=== PATIENT | male | born 1945 | race Caucasian/White ===

== ENCOUNTER 2018-01-24 20:13 | Emergency (ER) | payer MEDICARE, BC ==
[2018-01-24] MEDS ORDERED: NS 0.9% 1000 ML* 1,000 ML IV ONE (20:51)
[2018-01-24] MEDS ORDERED: Ibuprofen TAB* 200 MG PO ONE (21:06)
[2018-01-24 21:10] LABS: ABS Basophils 0 10^3/ul (0-0.2); ABS Eosinophils 0 10^3/ul (0-0.6); ABS Lymphocytes 0.3 10^3/ul (1.0-4.8); ABS Monocytes 0.2 10^3/ul (0-0.8); ABS Neutrophils 4.9 10^3/ul (1.5-7.7); ABS Nucleated RBC 0 10^3/ul; Eosinophil % 0.4 %; Hematocrit 43 % (42-52); Hemoglobin 14.8 g/dl (14.0-18.0); Lymphocyte % 4.9 %; Mean Corpuscular HGB Conc 35 g/dl (31-36); Mean Corpuscular Hemoglobin 33 pg (27-31); Mean Corpuscular Volume 97 fL (80-94); Mean Platelet Volume 8.2 fL (7.4-10.4); Nucleated Red Blood Cells % 0; Platelet Count 163 10^3/ul (150-450); Red Blood Count 4.44 10^6/ul (4.00-5.40); Red Cell Distribution Width 14 % (10.5-15); White Blood Count 5.4 10^3/ul (3.5-10.8)
[2018-01-24 21:26] LABS: EGFR Non-African American 71.4 (>60)
[2018-01-24 23:55] LABS: Urine Appearance Cloudy; Urine Blood Negative (Negative); Urine Color Amber; Urine Ketones Negative (Negative); Urine Protein 1+(30 mg/dL) (Negative); Urine Red Blood Cell Trace(0-2/hpf) (Absent); Urine Specific Gravity 1.034 (1.010-1.030); Urine Urobilinogen Negative (Negative); Urine White Blood Cell Trace(0-5/hpf) (Absent)
--- NOTE | 2018-01-25 00:31 | ED ---
HPI Febrile Illness - HPI Summary HPI Summary: Patient complains of fever up to 103.5 today at 7:30 PM, and one episode of diarrhea yesterday and today. Patient denies any other symptoms including cough, sore throat, ear pain, CARTER, neck stiffness, CP, SOB, N/V/D, abdominal pain , change in urine, change in BM. Patient was given 400mg of Advil at 7:30 PM. Medical history CAD, aortic stenosis, HTN, HDL. Former smoker, denies EtOH or recreational drug use. 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 Onset/Duration: Started Hours Ago Timing: Constant Current Severity: None Pain Intensity: 0 Pain Scale Used: 0-10 Numeric Aggravating Factors: Nothing Alleviating Factors: OTC Medicine Associated Signs and Symptoms: Diarrhea - Additional Pertinent History Primary Care Physician: PAULA - Allergy/Home Medications Allergies/Adverse Reactions: Allergies Allergy/AdvReac Type Severity Reaction Status Date / Time No Known Allergies Allergy Verified 01/24/18 20:20 PMH/Surg Hx/FS Hx/Imm Hx Endocrine/Hematology History: Reports: Hx Thyroid Disease - hypothyroidism Cardiovascular History: Reports: Hx Angina, Hx Coronary Artery Disease, Hx Hypercholesterolemia, Hx Hypertension, Hx Valvular Heart Disease - Aortic Stenosis; monitored by Dr. Hua, yearly echocardiogram, Other Cardiovascular Problems/Disorders - severe aortic stenosis Denies: Hx Myocardial Infarction Respiratory History: Denies: Hx Asthma, Hx Chronic Obstructive Pulmonary Disease (COPD) GI History: Reports: Hx Gastroesophageal Reflux Disease Musculoskeletal History: Reports: Other Musculoskeletal History - ankylosing spondilitis Sensory History: Reports: Hx Contacts or Glasses Opthamlomology History: Reports: Hx Contacts or Glasses - Surgical History Surgery Procedure, Year, and Place: CABG, bilat hip Infectious Disease History: No Infectious Disease History: Denies: Hx Clostridium Difficile, Hx Hepatitis, Hx Human Immunodeficiency Virus (HIV), Hx of Known/Suspected MRSA, Hx Shingles, Hx Tuberculosis, Hx Known/ Suspected VRE, Hx Known/Suspected VRSA, History Other Infectious Disease, Traveled Outside the [place] in Last 30 Days - Social History Alcohol Use: None Substance Use Type: Reports: None Smoking Status (MU): Former Smoker Review of Systems Positive: Fever Eyes: Negative ENT: Negative Cardiovascular: Negative Respiratory: Negative Positive: Diarrhea Genitourinary: Negative Musculoskeletal: Negative Skin: Negative Neurological: Negative Psychological: Normal All Other Systems Reviewed And Are Negative: Yes Physical Exam - Summary Physical Exam Summary: Physical exam unremarkable. Triage Information Reviewed: Yes Vital Signs On Initial Exam: Initial Vitals Temp Pulse Resp BP Pulse Ox 100.2 F 105 16 129/66 94 01/24/18 20:19 01/24/18 20:19 01/24/18 20:19 01/24/18 20:19 01/24/18 20:19 Vital Signs Reviewed: Yes Appearance: Positive: Well-Appearing Skin: Positive: Warm Head/Face: Positive: Normal Head/Face Inspection Eyes: Positive: Normal ENT: Positive: Normal ENT inspection Neck: Positive: Supple Respiratory/Lung Sounds: Positive: Clear to Auscultation Cardiovascular: Positive: Normal Abdomen Description: Positive: Nontender Musculoskeletal: Positive: Normal Neurological: Positive: Normal Psychiatric: Positive: Normal AVPU Assessment: Alert - [place] Coma Scale Best Eye Response: 4 - Spontaneous Best Motor Response: 6 - Obeys Commands Best Verbal Response: 5 - Oriented Coma Scale Total: 15 Diagnostics - Vital Signs Vital Signs Temp Pulse Resp BP Pulse Ox 01/25/18 00:25 87 18 93/57 94 01/25/18 00:24 84 17 74/44 95 01/25/18 00:00 86 15 95 01/24/18 23:52 87 16 96 01/24/18 23:45 98.6 F 01/24/18 23:00 81 14 95 01/24/18 22:00 78 20 95 01/24/18 21:00 93 28 96 01/24/18 20:41 95 21 110/68 95 01/24/18 20:38 93 25 95 01/24/18 20:19 100.2 F 105 16 129/66 94 - Laboratory Lab Results: Lab Results 01/24/18 01/24/18 01/24/18 Range/Units 21:03 21:03 21:03 WBC 5.4 (3.5-10.8) 10^3/ul RBC 4.44 (4.00-5.40) 10^6/ul Hgb 14.8 (14.0-18.0) g/dl Hct 43 (42-52) % MCV 97 H (80-94) fL MCH 33 H (27-31) pg MCHC 35 (31-36) g/dl RDW 14 (10.5-15) % Plt Count 163 (150-450) 10^3/ul MPV 8.2 (7.4-10.4) fL Neut % (Auto) 90.9 % Lymph % (Auto) 4.9 % [place] % (Auto) 3.5 % Eos % (Auto) 0.4 % Baso % (Auto) 0.3 % Absolute Neuts (auto) 4.9 (1.5-7.7) 10^3/ul Absolute Lymphs (auto) 0.3 L (1.0-4.8) 10^3/ul Absolute Monos (auto) 0.2 (0-0.8) 10^3/ul Absolute Eos (auto) 0 (0-0.6) 10^3/ul Absolute Basos (auto) 0 (0-0.2) 10^3/ul Absolute Nucleated RBC 0 10^3/ul Nucleated RBC % 0 Sodium 136 (135-145) mmol/L Potassium 4.0 (3.5-5.0) mmol/L Chloride 104 (101-111) mmol/L Carbon Dioxide 24 (22-32) mmol/L Anion Gap 8 (2-11) mmol/L BUN 20 (6-24) mg/dL Creatinine 1.02 (0.67-1.17) mg/dL Est GFR ( Amer) 86.4 (>60) Est GFR (Non-Af Amer) 71.4 (>60) BUN/Creatinine Ratio 19.6 (8-20) Glucose 143 H (70-100) mg/dL Lactic Acid 1.8 (0.5-2.0) mmol/L Calcium 8.6 (8.6-10.3) mg/dL Total Bilirubin 1.10 H (0.2-1.0) mg/dL AST 26 (13-39) U/L ALT 30 (7-52) U/L Alkaline Phosphatase 100 (34-104) U/L C-Reactive Protein 8.52 H (<8.01) mg/L Total Protein 6.5 (6.4-8.9) g/dL Albumin 3.9 (3.2-5.2) g/dL Globulin 2.6 (2-4) g/dL Albumin/Globulin Ratio 1.5 (1-3) Urine Color Urine Appearance Urine pH (5-9) Ur Specific [place] (1.010-1.030) Urine Protein (Negative) Urine Ketones (Negative) Urine Blood (Negative) Urine Nitrate (Negative) Urine Bilirubin (Negative) Urine Urobilinogen (Negative) Ur Leukocyte Esterase (Negative) Urine WBC (Auto) (Absent) Urine RBC (Auto) (Absent) Urine Bacteria (Absent) Urine Glucose (Negative) Urine Ascorbic Acid (Negative) 01/24/18 Range/Units 23:45 WBC (3.5-10.8) 10^3/ul RBC (4.00-5.40) 10^6/ul Hgb (14.0-18.0) g/dl Hct (42-52) % MCV (80-94) fL MCH (27-31) pg MCHC (31-36) g/dl RDW (10.5-15) % Plt Count (150-450) 10^3/ul MPV (7.4-10.4) fL Neut % (Auto) % Lymph % (Auto) % [place] % (Auto) % Eos % (Auto) % Baso % (Auto) % Absolute Neuts (auto) (1.5-7.7) 10^3/ul Absolute Lymphs (auto) (1.0-4.8) 10^3/ul Absolute Monos (auto) (0-0.8) 10^3/ul Absolute Eos (auto) (0-0.6) 10^3/ul Absolute Basos (auto) (0-0.2) 10^3/ul Absolute Nucleated RBC 10^3/ul Nucleated RBC % Sodium (135-145) mmol/L Potassium (3.5-5.0) mmol/L Chloride (101-111) mmol/L Carbon Dioxide (22-32) mmol/L Anion Gap (2-11) mmol/L BUN (6-24) mg/dL Creatinine (0.67-1.17) mg/dL Est GFR ( Amer) (>60) Est GFR (Non-Af Amer) (>60) BUN/Creatinine Ratio (8-20) Glucose (70-100) mg/dL Lactic Acid (0.5-2.0) mmol/L Calcium (8.6-10.3) mg/dL Total Bilirubin (0.2-1.0) mg/dL AST (13-39) U/L ALT (7-52) U/L Alkaline Phosphatase (34-104) U/L C-Reactive Protein (<8.01) mg/L Total Protein (6.4-8.9) g/dL Albumin (3.2-5.2) g/dL Globulin (2-4) g/dL Albumin/Globulin Ratio (1-3) Urine Color Rita Urine Appearance Cloudy Urine pH 5.0 (5-9) Ur Specific E[place] 1.034 H (1.010-1.030) Urine Protein 1+(30 mg/dl) A (Negative) Urine Ketones Negative (Negative) Urine Blood Negative (Negative) Urine Nitrate Negative (Negative) Urine Bilirubin Negative (Negative) Urine Urobilinogen Negative (Negative) Ur Leukocyte Esterase Negative (Negative) Urine WBC (Auto) Trace(0-5/hpf) (Absent) Urine RBC (Auto) Trace(0-2/hpf) (Absent) Urine Bacteria Absent (Absent) Urine Glucose Negative (Negative) Urine Ascorbic Acid * A (Negative) Result Diagrams: 01/24/18 21:03 01/24/18 21:03 Lab Statement: Any lab studies that have been ordered have been reviewed, and results considered in the medical decision making process. Course/Dx - Course Course Of Treatment: Patient complains of fever up to 103.5 today at 7:30 PM, and one episode of diarrhea yesterday and today. Patient denies any other symptoms including cough, sore throat, ear pain, CARTER, neck stiffness, CP, SOB, N/ V/D, abdominal pain, change in urine, change in BM. Patient was given 400mg of Advil at 7:30 PM. Medical history CAD, aortic stenosis, HTN, HDL. Former smoker , denies EtOH or recreational drug use. Physical exam unremarkable. Fever controlled here in the ED. Vital signs stable and within normal limits. Labs unremarkable. Chest x-ray negative. Urine negative. 1 L normal saline. Patient advised to continue fever control by alternating Tylenol and ibuprofen every 3 hours. And to return to the ED for any new or worsening symptoms. Patient and understand and agree with plan. - Diagnoses Provider Diagnoses: Febrile illness, acute Discharge - Sign-Out/Discharge Documenting (check all that apply): Patient Departure - Discharge Plan Condition: Stable Disposition: HOME Patient Education Materials: Fever in Adults (ED) Referrals: No Primary Care Phys,NOPCP [Primary Care Provider] - [facility] [Outside] Additional Instructions: Alternate 650 mg of Tylenol with 600 mg of ibuprofen every 3 hours for fever control. Drink plenty of fluids. Follow-up with primary care. Return to the ED for any new or worsening symptoms. - Billing Disposition and Condition Condition: STABLE Disposition: Home
[2018-01-25 00:46] VITALS: BP 114/58
== END 2018-01-25 00:45 | disposition home or self-care (01) ==
LOC: ED 20:13
DX: R50.9 Fever, unspecified (principal); R19.7 Diarrhea, unspecified; I25.10 Atherosclerotic heart disease of native coronary artery without angina pectoris; I10 Essential (primary) hypertension; Z87.891 Personal history of nicotine dependence
CPT/HCPCS: 36415; 71046; 80053; 81003; 81015; 83605; 85025; 86140; 87040; 87086; 96360; 96361; 99284

== ENCOUNTER 2019-04-17 21:35 | Inpatient (IN) | payer MEDICARE, BC ==
[2019-04-17] MEDS ORDERED: NS 0.9% 1000 ML** 1,000 ML IV.FLUID IV ONE (21:59)
[2019-04-17 22:00] LABS: ABS Lymphocytes 0.5 10^3/ul (1.0-4.8); ABS Monocytes 0.5 10^3/ul (0-0.8); ABS Neutrophils 7.5 10^3/ul (1.5-7.7); Eosinophil % 0.2 %; Hematocrit 40 % (42-52); Hemoglobin 13.8 g/dL (14.0-18.0); Lymphocyte % 6.2 %; Mean Corpuscular HGB Conc 34 g/dL (31-36); Mean Corpuscular Hemoglobin 33 pg (27-31); Mean Corpuscular Volume 97 fL (80-94); Mean Platelet Volume 8.7 fL (7.4-10.4); Nucleated Red Blood Cells % 0.1; Platelet Count 168 10^3/uL (150-450); Red Blood Count 4.13 10^6 /uL (4.18-5.48); Red Cell Distribution Width 14 % (10-15); White Blood Count 8.6 10^3/uL (3.5-10.8)
[2019-04-17 22:06] LABS: INR 1.38 (0.82-1.09)
[2019-04-17] MEDS ORDERED: Acetaminophen TAB* 325 MG PO ONE (22:10)
[2019-04-17 22:16] LABS: ALT 19 U/L (7-52); AST 18 U/L (13-39); Albumin 3.8 g/dL (3.2-5.2); Albumin/Globulin Ratio 1.4 (1-3); Alkaline Phosphatase 97 U/L (34-104); Anion Gap 6 mmol/L (2-11); BUN/Creatinine Ratio 16.7 (8-20); Blood Urea Nitrogen 15 mg/dL (6-24); CO2 Carbon Dioxide 24 mmol/L (22-32); Chloride 105 mmol/L (101-111); EGFR African American 99.3 (>60); Globulin 2.7 g/dL (2-4); Glucose 139 mg/dL (70-100); Sodium 135 mmol/L (135-145); Total Protein 6.5 g/dL (6.4-8.9)
[2019-04-17 22:24] LABS: Troponin I 0.06 ng/mL (<0.03)
[2019-04-17 22:25] LABS: Activated Partial Thrombo Time 36.3 seconds (26.0-38.0)
[2019-04-17] MEDS ORDERED: Azithromycin 500 mg/250 ml NS 500 MG/250 ML BAG IVPB ONE (22:26)
[2019-04-17] MEDS ORDERED: cefTRIAXone(*) 1 GM in NS 0.9% 50 ML* 50 ML IVPB ONE (22:26)
--- NOTE | 2019-04-17 22:26 | ED ---
Complex/Multi-Sys Presentation - HPI Summary HPI Summary: Patient is a 74 y/o M presenting to [facility] with complaints of SOB, non- productive cough, wheezing, fever, and chest tightness. Sx onset yesterday, . Patient states that he had ambulated upstairs to the bathroom yesterday and became SOB, which he characterizes as abnormal. Temperature of 102 F measured at home earlier today is reported. Patient was 92% o2 saturation on RA upon arrival to ED, patient was placed on NC with improvement. He denies abdominal pain, N/V/D, sore throat, and rhinorrhea. Hx of aortic stenosis is reported. Asthma and COPD are denied. He is a non-smoker. Home medications and allergies are reviewed. Home Medications Medication Instructions Recorded Confirmed Type Aspirin 81 mg PO DAILY 04/17/19 04/17/19 History Atorvastatin* [Lipitor*] 40 mg PO QPM 04/17/19 04/17/19 History Cholecalciferol (Vitamin D3) 5,000 unit PO DAILY 04/17/19 04/17/19 History [Vitamin D3] Docusate Sodium [Colace] 100 mg PO BID 04/17/19 04/17/19 History Metoprolol Tartrate TAB* 25 mg PO BID 04/17/19 04/17/19 History [Lopressor TAB*] Multivitamin [Multiple Vitamins] 1 tab PO DAILY 04/17/19 04/17/19 History Niacinamide [Niacin] 1,000 mg PO DAILY 04/17/19 04/17/19 History Ramipril 10 mg PO DAILY 04/17/19 04/17/19 History Ubidecarenone [Coq-10 Tr] 100 mg PO DAILY 04/17/19 04/17/19 History Vit A/Vit C/Vit E/Zinc/Copper 1 each PO BID 04/17/19 04/17/19 History [Preservision Areds Softgel] Vitamin B Complex [Super B-50 1 each PO DAILY 04/17/19 04/17/19 History Complex] - History Of Current Complaint Chief Complaint: EDChestPainROMI Time Seen by Provider: 04/17/19 21:58 Hx Obtained From: Patient Onset/Duration: Lasting Days, Still Present Timing: Constant, Days Location: Pain At: - chest Character: Pressure - "tightness" Associated Signs And Symptoms: Positive: SOB, Cough, Wheezing, Chest Pain, Fever , Other - negative - sore throat, rhinorrhea. Negative: Nausea, Vomiting, Diarrhea, Abdominal Pain - Allergies/Home Medications Allergies/Adverse Reactions: Allergies Allergy/AdvReac Type Severity Reaction Status Date / Time No Known Allergies Allergy Verified 01/24/18 20:20 Home Medications: Home Medications Aspirin 81 mg PO DAILY 04/17/19 [History Confirmed 04/17/19] Atorvastatin* [Lipitor*] 40 mg PO QPM 04/17/19 [History Confirmed 04/17/19] Cholecalciferol (Vitamin D3) [Vitamin D3] 5,000 unit PO DAILY 04/17/19 [History Confirmed 04/17/19] Docusate Sodium [Colace] 100 mg PO BID 04/17/19 [History Confirmed 04/17/19] Metoprolol Tartrate TAB* [Lopressor TAB*] 25 mg PO BID 04/17/19 [History Confirmed 04/17/19] Multivitamin [Multiple Vitamins] 1 tab PO DAILY 04/17/19 [History Confirmed 09/28] Niacinamide [Niacin] 1,000 mg PO DAILY 04/17/19 [History Confirmed 04/17/19] Ramipril 10 mg PO DAILY 04/17/19 [History Confirmed 04/17/19] Ubidecarenone [Coq-10 Tr] 100 mg PO DAILY 04/17/19 [History Confirmed 04/17/19] Vit A/Vit C/Vit E/Zinc/Copper [Preservision Areds Softgel] 1 each PO BID [History Confirmed 04/17/19] Vitamin B Complex [Super B-50 Complex] 1 each PO DAILY 04/17/19 [History Confirmed 04/17/19] Levothyroxine TAB* [Synthroid TAB*] 50 mcg PO DAILY 04/18/19 [History Confirmed 04/18/19] Nitroglycerin 0.4 mg SL TID PRN 04/18/19 [History Confirmed 04/18/19] PMH/Surg Hx/FS Hx/Imm Hx Endocrine/Hematology History: Reports: Hx Thyroid Disease - hypothyroidism Cardiovascular History: Reports: Hx Angina, Hx Coronary Artery Disease, Hx Hypercholesterolemia, Hx Hypertension, Hx Valvular Heart Disease - Aortic Stenosis; monitored by Dr. Hua, yearly echocardiogram, Other Cardiovascular Problems/Disorders - severe aortic stenosis Denies: Hx Myocardial Infarction Respiratory History: Denies: Hx Asthma, Hx Chronic Obstructive Pulmonary Disease (COPD) GI History: Reports: Hx Gastroesophageal Reflux Disease Musculoskeletal History: Reports: Other Musculoskeletal History - ankylosing spondilitis Sensory History: Reports: Hx Contacts or Glasses Opthamlomology History: Reports: Hx Contacts or Glasses - Surgical History Surgery Procedure, Year, and Place: CABG, bilat hip Infectious Disease History: No Infectious Disease History: Denies: Hx Clostridium Difficile, Hx Hepatitis, Hx Human Immunodeficiency Virus (HIV), Hx of Known/Suspected MRSA, Hx Shingles, Hx Tuberculosis, Hx Known/ Suspected VRE, Hx Known/Suspected VRSA, History Other Infectious Disease, Traveled Outside the [place] in Last 30 Days - Family History Known Family History: Positive: Cardiac Disease - Social History Alcohol Use: None Substance Use Type: Reports: None Smoking Status (MU): Former Smoker Review of Systems Positive: Fever Negative: Sore Throat, Nasal Discharge Positive: Chest Pain Positive: Shortness Of Breath, Cough, Other - Wheezing Negative: Abdominal Pain, Vomiting, Diarrhea, Nausea All Other Systems Reviewed And Are Negative: Yes Physical Exam - Summary Physical Exam Summary: Appearance: Ill-appearing, Well-nourished, lying in bed comfortably; Vital signs are notable for hypoxemia and fever. Skin: Warm, dry, no obvious rash Eyes: sclera anicteric, no conjunctival pallor HENT: mucous membranes moist, pharynx appears normal Neck: Supple, nontender Respiratory: Mildly tachypneic, no notable respiratory distress, coarse crackles , particularly on the right. Bronchial breath sounds and E to A at right base. Cardiovascular: Normal S1, S2. No murmurs. Normal distal pulses in tibial and radial bilaterally. Abdomen: Soft, nontender, normal active bowel sounds present Musculoskeletal: Trace pitting BLE edema. Strength/ROM Intact Neurological: A&Ox3, awake and alert, mentation is normal, speech is fluent and appropriate Psychiatric: affect is normal, does not appear anxious or depressed Triage Information Reviewed: Yes Vital Signs On Initial Exam: Initial Vitals Temp Pulse Resp BP Pulse Ox 101.2 F 98 28 145/84 92 04/17/19 21:36 04/17/19 21:36 04/17/19 21:36 04/17/19 21:36 04/17/19 21:36 Vital Signs Reviewed: Yes Procedures - Sedation Patient Received Moderate/Deep Sedation with Procedure: No Diagnostics - Vital Signs Vital Signs Temp Pulse Resp BP Pulse Ox 04/17/19 21:42 95 12 145/84 92 04/17/19 21:40 97 89 04/17/19 21:36 101.2 F 98 28 145/84 92 - Laboratory Lab Results: Lab Results 04/17/19 Range/Units 21:47 WBC 8.6 (3.5-10.8) 10^3/uL RBC 4.13 L (4.18-5.48) 10^6 /uL Hgb 13.8 L (14.0-18.0) g/dL Hct 40 L (42-52) % MCV 97 H (80-94) fL MCH 33 H (27-31) pg MCHC 34 (31-36) g/dL RDW 14 (10-15) % Plt Count 168 (150-450) 10^3/uL MPV 8.7 (7.4-10.4) fL Neut % (Auto) 87.7 % Lymph % (Auto) 6.2 % Ness % (Auto) 5.7 % Eos % (Auto) 0.2 % Baso % (Auto) 0.2 % Absolute Neuts (auto) 7.5 (1.5-7.7) 10^3/ul Absolute Lymphs (auto) 0.5 L (1.0-4.8) 10^3/ul Absolute Monos (auto) 0.5 (0-0.8) 10^3/ul Absolute Eos (auto) 0.0 (0-0.6) 10^3/ul Absolute Basos (auto) 0.0 (0-0.2) 10^3/ul Absolute Nucleated RBC 0.0 10^3/ul Nucleated RBC % 0.1 Result Diagrams: 04/17/19 21:47 04/17/19 21:47 Lab Statement: Any lab studies that have been ordered have been reviewed, and results considered in the medical decision making process. - Radiology CXR Radiology Interpretation Completed By: ED Physician Summary of Radiographic Findings: Bilateral airspace disease with air bronchograms consistent with bilateral PNA, pending official report. - EKG 2140 Cardiac Rate: Tachycardia - rate of 116 BPM EKG Rhythm: Sinus Tachycardia Summary of EKG Findings: EKG showed sinus tachycardia with rate of 116 BPM, [facility], no STEMI noted. ED physician has reviewed and interpreted this EKG. Complex Multi-Symp Course/Dx Course Of Treatment: Patient is a 74 y/o M presenting to [facility] with complaints of SOB, non-productive cough, wheezing, fever, and chest tightness. Sx onset yesterday, 04/16/19. Patient states that he had ambulated upstairs to the bathroom yesterday and became SOB, which he characterizes as abnormal. Temperature of 102 F measured at home earlier today is reported. Patient was 92 % o2 saturation on RA upon arrival to ED, patient was placed on NC with improvement. He denies abdominal pain, N/V/D, sore throat, and rhinorrhea. Hx of aortic stenosis is reported. Asthma and COPD are denied. He is a non-smoker. Patient is ill-appearing, vital signs are notable for fever and hypoxemia. He is mildly tachypneic, no notable respiratory distress, coarse crackles, particularly on the right. Bronchial breath sounds and E to A at right base. There is also trace BLE edema. Bloodwork was obtained, abnormal values include RBC 4.13, Hgb 13.8, Hct 40, MCV 97, MCH 33, absolute lymphs 0.5, INR 1.38, glucose 139, total bilirubin 1.90, troponin 0.06. CXR showed bilateral airspace disease with air bronchograms consistent with bilateral PNA. EKG showed sinus tachycardia with rate of 116 BPM, [facility], no STEMI noted. During ED course , patient received fluids, ceftriaxone sodium 1 gm in sodium chloride 50 mls @ 100 mls/hr IVPB ED, Ziithromax 500 mg in 250 mls @ 250 mls/hr IVPB ED, Tylenol 975 mg PO. Patient's case was discussed with Dr. More, Dr. More accepts for admission. - Diagnoses Provider Diagnoses: Bilateral pneumonia - Physician Notifications Discussed Care Of Patient With: Hector More Time Discussed With Above Provider: 22:35 Instructed by Provider To: Other - Patient's case was discussed with Dr. More , Dr. More accepts for admission. Discharge ED - Sign-Out/Discharge Documenting (check all that apply): Patient Departure - admit - Discharge Plan Condition: Fair Disposition: ADMITTED TO [facility] - Billing Disposition and Condition Condition: FAIR Disposition: Admitted to [facility] - Attestation Statements Document Initiated by Riki: Yes Documenting Noemiibe: SELAM PEREZ Provider For Whom Riki is Documenting (Include Credential): INOCENCIA MICHELLE MD Scribamelie Attestation: SELAM Lloyd, scribed for INOCENCIA MICHELLE MD on 04/18/19 at 0353. Scribe Documentation Reviewed: Yes Provider Attestation: The documentation as recorded by the SELAM couch accurately reflects the service I personally performed and the decisions made by me, INOCENCIA MICHELLE MD Status of Scribamelie Document: Viewed
[2019-04-17] MEDS ORDERED: Ondansetron INJ* 2 MG/ML VIAL IV PRN (23:52)
[2019-04-17] MEDS ORDERED: Al Hydrox/Mg Hydrox/Simet LIQ* 30 ML UDC PO PRN (23:52)
[2019-04-18 00:53] LABS: Influenza A Molecular Negative (Negative); Influenza B Molecular Negative (Negative)
[2019-04-18 01:36] LABS: Urine Appearance Clear; Urine Bilirubin Negative (Negative); Urine Blood Negative (Negative); Urine Color Yellow; Urine Glucose Negative (Negative); Urine Ketones Negative (Negative); Urine Nitrite Negative (Negative); Urine Protein Negative (Negative); Urine Specific Gravity 1.008 (1.010-1.030); Urine Urobilinogen Negative (Negative)
[2019-04-18 02:03] LABS: Troponin I 0.06 ng/mL (<0.03)
[2019-04-18] MEDS: Enoxaparin(*) 40 MG/0.4 ML SYR SUBCUT SCH ×2 (02:05→21:29)
[2019-04-18 04:01] LABS: Troponin I 0.06 ng/mL (<0.03)
[2019-04-18 07:15] LABS: ABS Lymphocytes 0.6 10^3/ul (1.0-4.8); ABS Monocytes 0.4 10^3/ul (0-0.8); ABS Neutrophils 5.6 10^3/ul (1.5-7.7); Eosinophil % 0.6 %; Hematocrit 40 % (42-52); Hemoglobin 14.1 g/dL (14.0-18.0); Lymphocyte % 9.7 %; Mean Corpuscular HGB Conc 35 g/dL (31-36); Mean Corpuscular Hemoglobin 34 pg (27-31); Mean Corpuscular Volume 97 fL (80-94); Platelet Count 154 10^3/uL (150-450); Red Blood Count 4.13 10^6 /uL (4.18-5.48); Red Cell Distribution Width 14 % (10-15); White Blood Count 6.7 10^3/uL (3.5-10.8)
[2019-04-18 07:32] LABS: BUN/Creatinine Ratio 13.8 (8-20); Calcium 8.5 mg/dL (8.6-10.3); EGFR African American 113.7 (>60); Magnesium 1.8 mg/dL (1.9-2.7)
[2019-04-18 07:38] LABS: Troponin I 0.06 ng/mL (<0.03)
[2019-04-18] MEDS: Docusate CAP* 100 MG PO SCH ×2 (08:18→21:29)
[2019-04-18] MEDS: Vitamin B Complex TAB PO SCH (08:18)
[2019-04-18] MEDS: Cholecalciferol TAB* 1000 UNITS PO SCH (08:19)
[2019-04-18] MEDS: Aspirin 81 mg CHEW TAB* 81 MG TAB.CHEW PO SCH (08:19)
[2019-04-18] MEDS: Metoprolol Tartrate TAB* 25 MG PO SCH ×2 (08:20→21:30)
[2019-04-18] MEDS: Vitamin THERAPEUTIC TAB PO SCH (08:20)
[2019-04-18] MEDS: Coenzyme Q10 (NF) ** ENTER STREGNTH IN LABEL DIRECTIONS PO SCH (08:21)
[2019-04-18] MEDS: Multivitamins/Minera Areds(NF) 1 CAP CAP PO SCH ×2 (08:21→21:36)
[2019-04-18] MEDS: Niacin ER CAP* 500 MG CAP.ER PO SCH (08:21)
[2019-04-18] MEDS ORDERED: Magnesium Sulfate 2 GM IV* 2 GM/50 ML BAG IVPB ONE (08:47)
[2019-04-18] MEDS ORDERED: Ramipril CAP* 10 MG PO SCH (09:00)
[2019-04-18] MEDS ORDERED: Perflutren Lipid Microsphere* 3 ML VIAL ONE (09:16)
[2019-04-18] MEDS ORDERED: NS 0.9% 1000 ML** 1,000 ML IV SCH ×2 (11:30→23:55)
[2019-04-18] MEDS: Albuterol/Ipratropium NEB.SOL* Albuterol 2.5 MG/Ipratropium 0.5 MG 3 ML INH SCH ×2 (12:01→15:29)
--- NOTE | 2019-04-18 12:12 | CONS ---
CONSULTATION REPORT: DATE OF CONSULT: 04/18/19 ATTENDING PHYSICIAN: Dr. Jerome Solis, Cardiology.* (DICTATED BY ALCIRA GAVIN NP) PRIMARY ONCOLOGIST: Dr. Darrin Hua. PRIMARY PHYSICIAN: Dr. Taj Bernabe. CHIEF COMPLAINT: 1. Fever. 2. Nonproductive cough. 3. Shortness of breath. 4. Chest tightness. HISTORY OF PRESENT ILLNESS: This is a pleasant 74-year-old male patient who follows with Dr. Darrin Hua of our practice due to a notable history of coronary artery disease with bypass x4 in 2003 that resulted in left internal thoracic artery to LAD, saphenous vein graft to PDA, saphenous vein graft to obtuse marginal, saphenous vein graft to ramus, extensive endarterectomy to LAD. The patient also has been followed for severe to borderline critical aortic stenosis. Last echocardiogram was in May 2018 per report, peak gradient was 74, mean gradient 46 with a known 4 cm proximal ascending aortic aneurysm. He follows with primary care provider for a history of hypertension, hyperlipidemia, and GERD. The patient states he has been in his usual state of health since his last visit in May 2018. He denies any recent illness, infection, or hospitalization. He states that after ambulating up a flight of stairs at a quicker pace than usual Thursday evening, he developed sudden onset of shortness of breath with associated nonproductive cough and associated chest tightness. The patient states after resting, within 2 to 3 minutes, chest tightness resolved and breathing effort improved. On Thursday, he had a documented fever of 102.5 degrees. The patient states that his 's friend who is a registered nurse was at his house, took his blood pressure, gave him Tylenol and repeated his temperature which continued to persistently be elevated. He states that he asked his to call 911. En route to [facility], the patient reports oxygen level with EMS was 88% on room air. Thus, they gave him supplemental oxygen. Oxygen level in the emergency department was 92%. According to the emergency room provider's documentation, the patient was tachypneic and tachycardic. The patient presented with frequent ventricular ectopy and a bigeminal pattern. Based on his presenting ECG, 04/17/19 at 2138, heart rate was 116. The patient had basic blood work obtained. Influenza A and B were negative. He had persistent troponinemia at 0.06, although in the past it appears that his troponin was elevated in 2015 as well. INR 1.38. Not on any anticoagulants at home. His white blood cell count was not elevated. He was admitted to [address] [place] [address] for possible upper respiratory tract infection and troponin elevation, and we were asked to see the patient in consultation. The patient denies diarrhea. States that he did not manifest fevers, chills, or rigors. He adds that his had been sick with a nonproductive cough a week ago and he believes that he contracted upper respiratory tract illness from her. He denies dizziness, lightheadedness, or syncope. Denies edema and states he has actually lost weight since last year. He offers no other complaints. 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 Adds that he also is employed as a wildland fire fighter at [employer] and has not had any exertional symptoms with those duties either. Last echocardiogram, as mentioned before, 05/10/18; per report, LVEF 60% to 65% , mild LVH, ascending proximal aorta 4 cm, severe to borderline critical , peak gradient 74, mean gradient 46. Last ischemic evaluation via Lexiscan nuclear stress test, May 2018; per report, there was a small fixed apical septal defect, small basal lateral resting defect with mild superimposed photopenia, resting EF 50%, stress EF 51% , TID 1.06. PAST MEDICAL HISTORY: 1. Coronary artery disease with prior bypass x4 in 2003 as mentioned above. 2. Hypertension. 3. Hyperlipidemia. 4. Severe to critical aortic stenosis. 5. 4 cm proximal aortic dilatation. 6. Hypothyroidism. 7. GERD. PAST SURGICAL HISTORY: 1. CABG x4 in 2003 as mentioned above. 2. Prior cardiac catheterization. ALLERGIES: No known drug allergies. Denies allergy to shellfish, contrast dye , or aspirin. FAMILY HISTORY: Noncontributory. SOCIAL HISTORY: The patient is a former tobacco user. Drinks alcohol rarely. Denies illegal drug use. 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 He is , lives at home with his . In regards to activity, he lives a fairly active lifestyle given his employment. Prior to this, denies exertional symptoms. He ambulates independently. Denies recent fall or frequent falls. REVIEW OF SYSTEMS: All systems have been reviewed and are otherwise negative except as above mentioned in the HPI. PHYSICAL EXAMINATION: The patient is sitting upright in bed upon entering room , eating breakfast, appears in no apparent distress, is cooperative with the examination, appears well nourished, A and O x3, does not appear overtly frail. HEENT: Head is atraumatic, normocephalic. Oral mucosa is moist. Tongue is midline. Neck: Supple. Trachea midline. Positive left greater than right bruits. Unable to assess JVD. Cardiac: Normal S1, S2. Regular rate and rhythm. Positive 4/6 systolic aortic valve murmur auscultated across the entire pericardium. Lungs: Auscultated posteriorly. Slight inspiratory rales noted throughout. Slight inspiratory wheezes noted in right base, otherwise respirations are nonlabored. No retractions. /GI: Abdomen is soft, nontender, nondistended. Normoactive bowel sounds x4. Nontender to palpation. Extremities: No pedal edema, clubbing, or cyanosis. Peripheral vascular: 2+ brachial and dorsalis pedis pulses palpated bilaterally symmetrically. Skin: Intact. No evidence of jaundice, rash, or ecchymosis appreciated. DIAGNOSTIC STUDIES/LAB DATA: Blood work reviewed, white count 6.7, hemoglobin 14.1, hematocrit 40, platelets 154. INR 1.38. Sodium 139, potassium 4, chloride 107, carbon dioxide 24, BUN 11, creatinine 0.80. Influenza A and B are negative. Sputum culture is pending. Chest x-ray, 04/17/19, per report, patchy bilateral perihilar airspace disease, small left pleural effusion. ECG, 04/17/19; per report, sinus tachycardia with ventricular bigeminy, rate 116 , there appears to be inferior Q waves, no acute ST segment or depression appreciated. Echocardiogram pending. ASSESSMENT AND PLAN: 1. Sudden onset complaints of exertional dyspnea with associated chest tightness and nonproductive cough with subsequent development of fever per the patient. Although he states exposure to his who has recently had similar symptomatology in the past week, his white blood cell count is not elevated. His influenza A and B rapid resting were negative. He is currently being treated for community acquired pneumonia. Of note, he presented with tachycardia, ventricular bigeminy, and troponinemia. We will defer evaluation for possible PE to primary team. Sputum culture is pending at this time. 2. History of severe to critical aortic stenosis; peak gradient 74, mean gradient 46 on May 2018 echocardiogram. His left ventricular ejection fraction at that time was 60% to 65%. Given possible infection, which could lead to volume contraction, we will hold ISSA inhibitor therapy and avoid afterload reduction. His symptom onset was sudden onset and he has had a documented fever at home and had a low-grade fever upon presentation to the emergency room. We will await updated echocardiogram, assessment of aortic valve and make further recommendations afterwards. For now, avoid volume contraction, afterload reduction, and nitrate therapy. 3. Ventricular ectopy; the patient has had ventricular bigeminy, specifically while in the emergency department, magnesium is 1.8. We will replace. Recommend keeping magnesium greater than 2, potassium greater than 4. Continue Lopressor therapy. The patient is asymptomatic. 4. History of coronary artery disease with bypass x4 in 2003. The patient has troponinemia. No ischemic ECG changes. He was tachycardic with ventricular bigeminy while in the emergency department. He had exertional dyspnea with associated chest tightness that improved with rest Thursday evening. This is in the setting of a documented fever and nonproductive cough and severe to critical aortic stenosis. He had an ischemic evaluation last May, which showed a fixed apical septal defect that was small in nature, left ventricular ejection fraction resting was 50%, stress ejection fraction was 51%. Echocardiogram is to be updated to rule out wall motion abnormality. Of note in 2014, he also had troponinemia. We would recommend continuing aspirin, statin , beta-rafa at this time. We will make further recommendations after echo assessment. 5. History of hyperlipidemia. On statin therapy. Goal LDL less than 70. 6. Disposition: Pending course. Case discussed with Dr. Jerome Solis who agrees with the above assessment and plan. We will await echocardiogram and make further recommendations following please: Hold ISSA inhibitor to avoid afterload reduction and given probable underlying infection, please avoid volume contraction due to severe critical aortic stenosis. ALCIRA GAVIN, DIRECTOR CHECK [id number]/[facility] #: [id number] HANY
--- NOTE | 2019-04-18 12:18 | PN ---
Subjective Date of Service: 04/18/19 Interval History: Patient states he was short of breath going up stairs at home. Tells me he did not feel short of breath when walking to the bathroom, but was using continuous oxygen at that time. He denies fever/chills, difficulty breathing at rest, chest pain, abd pain. He wishes to be full code at this time but he and his are going to discuss the MOLST document. Objective Active Medications: Acetaminophen (Tylenol Tab*) 650 mg PO Q6H PRN PRN Reason: PAIN - MILD Al Hydrox/Mg Hydrox/Simethicone (Maalox Plus*) 30 ml PO Q6H PRN PRN Reason: INDIGESTION Albuterol/Ipratropium (Duoneb (Albuterol 2.5 Mg/Ipratropium 0.5 Mg)) 1 neb INH [id number] AWAKE [facility] Last Admin: 04/18/19 12:01 Dose: 1 neb Aspirin (Aspirin 81 Mg Chew Tab*) 81 mg PO DAILY [facility] Last Admin: 04/18/19 08:19 Dose: 81 mg Atorvastatin Calcium (Lipitor*) 40 mg PO BEDTIME [facility] Cholecalciferol (Vitamin D Tab*) 5,000 units PO DAILY [facility] Last Admin: 04/18/19 08:19 Dose: 5,000 units Coenzyme Q10 (Coenzyme Q10 (Nf)) 1 cap PO DAILY [facility] Last Admin: 04/18/19 08:21 Dose: Not Given Docusate Sodium (Colace Cap*) 100 mg PO BID [facility] Last Admin: 04/18/19 08:18 Dose: 100 mg Enoxaparin Sodium (Lovenox(*)) 40 mg SUBCUT BEDTIME [facility] Last Admin: 04/18/19 02:05 Dose: 40 mg Azithromycin (Zithromax 500 Mg/250 Ml) 500 mg in 250 mls @ 250 mls/hr IVPB Q24H [facility] Stop: 04/22/19 21:59 Ceftriaxone Sodium 1 gm/ (Sodium Chloride) 50 mls @ 100 mls/hr IVPB Q24H [facility] Sodium Chloride (Ns 0.9% 1000 Ml) 1,000 mls @ 75 mls/hr IV PER RATE [facility] Metoprolol Tartrate (Lopressor Tab*) 25 mg PO BID [facility] Last Admin: 03/09/20 08:20 Dose: 25 mg Multivitamins (Theragran Tab*) 1 tab PO DAILY [facility] Last Admin: 04/18/19 08:20 Dose: 1 tab Multivitamins/Minerals (Preservision Areds(Multivitamins/Mineral)(Nf)) 1 cap PO BID [facility] Last Admin: 04/18/19 08:21 Dose: Not Given Niacin (Niaspan Er Cap*) 1,000 mg PO DAILY [facility] Last Admin: 04/18/19 08:21 Dose: 1,000 mg Ondansetron HCl (Zofran Inj*) 4 mg IV Q4H PRN PRN Reason: NAUSEA/VOMITING Vitamin B Complex/Vitamin E (B Complex-50*) 1 tab PO DAILY [facility] Last Admin: 04/18/19 08:18 Dose: 1 tab Vital Signs - 8 hr 04/18/19 04/18/19 04/18/19 07:00 08:00 10:40 Temperature 98.5 F Pulse Rate 99 Respiratory 22 20 Rate Blood Pressure 147/73 (mmHg) O2 Sat by Pulse 94 88 Oximetry 04/18/19 04/18/19 11:00 12:07 Temperature 99.1 F Pulse Rate 105 110 Respiratory 22 16 Rate Blood Pressure 148/72 (mmHg) O2 Sat by Pulse 92 87 Oximetry Oxygen Devices in Use Now: Nasal Cannula Appearance: Elderly, obese white male, reclined in chair, appearing comfortable and in NAD Eyes: No Scleral Icterus, - - PERRL Ears/Nose/Mouth/Throat: - - lips appear dry Neck: Trachea Midline Respiratory: Symmetrical Chest Expansion and Respiratory Effort, Clear to Auscultation, - - faint wheezing in bilateral lower whaley and right mid lung field; minimally tachypneic, respiring through mouth Cardiovascular: RRR, - - high pitched holosystolic murmur, grade 4/6, auscultated well at mitral space; Abdominal: - - abd soft/nontender/nondistended Extremities: No Edema, No Clubbing, Cyanosis Skin: No Rash or Ulcers Neurological: Alert and Oriented x 3 Result Diagrams: 04/18/19 07:05 04/18/19 07:05 Additional Lab and Data: Lab Results 04/17/19 Range/Units 21:47 WBC 8.6 (3.5-10.8) 10^3/uL RBC 4.13 L (4.18-5.48) 10^6 /uL Hgb 13.8 L (14.0-18.0) g/dL Hct 40 L (42-52) % MCV 97 H (80-94) fL MCH 33 H (27-31) pg MCHC 34 (31-36) g/dL RDW 14 (10-15) % Plt Count 168 (150-450) 10^3/uL MPV 8.7 (7.4-10.4) fL Neut % (Auto) 87.7 % Lymph % (Auto) 6.2 % [place] % (Auto) 5.7 % Eos % (Auto) 0.2 % Baso % (Auto) 0.2 % Absolute Neuts (auto) 7.5 (1.5-7.7) 10^3/ul Absolute Lymphs (auto) 0.5 L (1.0-4.8) 10^3/ul Absolute Monos (auto) 0.5 (0-0.8) 10^3/ul Absolute Eos (auto) 0.0 (0-0.6) 10^3/ul Absolute Basos (auto) 0.0 (0-0.2) 10^3/ul Absolute Nucleated RBC 0.0 10^3/ul Nucleated RBC % 0.1 Assess/Plan/Problems-Billing Assessment: 74 yo white male with PMHx of severe , hx 4 vessel CABG, HTN, HLD, hypothyroidism, ankylosing spondylitis, and GERD presents with shortness of breath, cough, and chest pain. - Patient Problems (1) Pneumonia Current Visit: Yes Status: Acute Code(s): J18.9 - PNEUMONIA, UNSPECIFIED ORGANISM SNOMED Code(s): 380016446 Comment: -presents with fever, SOB, cough -CXR appears to have right sided consolidation -afebrile since admission -minimally tachycardic today and was running continuous fluids, but now discontinuing as below -continue ceftriaxone and azithromycin (2) Elevated troponin Current Visit: No Status: Acute Code(s): R79.89 - OTHER SPECIFIED ABNORMAL FINDINGS OF BLOOD CHEMISTRY SNOMED Code(s): 392226885 Comment: -presented with inspiratory chest pain -troponin stable at 0.06 -EKG without ischemic changes -has hx of 4 vessel CABG and does have some new demand in setting of pneumonia -considering new critical aortic valve stenosis, Dr. Solis recommends cardiac catheterization -to laboratory development technician tomorrow (3) Critical aortic valve stenosis Current Visit: Yes Status: Acute Code(s): I35.0 - NONRHEUMATIC AORTIC (VALVE ) STENOSIS SNOMED Code(s): 301988526 Comment: -previously known severe aortic stenosis -TTE today demonstrates worsening of , now critical -has had discussions with Dr. Hua outpatient and is interested in valve replacement (4) Acute respiratory failure with hypoxia Current Visit: Yes Status: Acute Code(s): J96.01 - ACUTE RESPIRATORY FAILURE WITH HYPOXIA SNOMED Code(s): 20414726 Comment: -appears multifactorial -patient has pneumonia, though additionall has critical and received large volume fluid, could be related to pulmonary edema -avoiding diuresis at this time due to mild hypotension -will d/c continuous fluids and monitor (5) Hypertension Current Visit: No Status: Acute Code(s): I10 - ESSENTIAL (PRIMARY) HYPERTENSION SNOMED Code(s): 30615477 Comment: -cardiology recommends holding ISSA-I -monitoring -somewhat hypotensive this afternoon (6) CAD (coronary artery disease) Current Visit: No Status: Acute Code(s): I25.10 - ATHSCL HEART DISEASE OF [place] CORONARY ARTERY W/O ANG PCTRS SNOMED Code(s): 16536220 Comment: -continue ASA, statin, metoprolol (7) Hypothyroidism Current Visit: Yes Status: Acute Code(s): E03.9 - HYPOTHYROIDISM, UNSPECIFIED SNOMED Code(s): 53284964 Comment: -continue levothyroxine (8) DVT prophylaxis Current Visit: No Status: Acute Code(s): EAJ5628 - SNOMED Code(s): 761068584 Comment: -lovenox (9) Full code status Current Visit: No Status: Acute Code(s): Z78.9 - OTHER SPECIFIED HEALTH STATUS SNOMED Code(s): 329639266 Status and Disposition: pending further medical improvement, cath tomorrow
--- NOTE | 2019-04-18 12:30 | ECHO ---
*[facility]* [place] [address] Fax #: [phone] Transthoracic Echocardiogram Patient: Davey Thacker : 1945 Study Date: 04/18/2019 Age: 74 Gender: M HR: 108 bpm Height: 67 in /170.2 cm BSA: 2.15 m^2 Weight: 229.5 lb /104.3 kg BMI: 36 kg/m^2 *Casing Runner: * Lydia Schulte [facility] *Referring Physician: * Hector More ; Darrin Hua MD *Reading Physician: * Jerome Solis MD Indications: SOB. History: Coronary artery disease. Aortic stenosis. Ankylosing Spondylitis. Risk factors: Hypertension. Obese. Dyslipidemia. Labs, prior tests, procedures, and surgery: Coronary artery bypass grafting. Conclusions Summary: - Left ventricle: Systolic function is mildly reduced. The estimated ejection fraction is 45-50%. Akinesis of the apicalinferoseptal myocardium. Hypokinesis of the basal-midanterolateral myocardium. Akinesis of the apicalanteroseptal myocardium. - Right ventricle: Systolic function is normal. - Mitral valve: There is trace to mild regurgitation. - Aortic valve: Valve mobility is restricted. The findings are consistent with critical stenosis. There is moderate regurgitation. The peak systolic velocity is 5.4 m/sec. The mean systolic gradient is 73.0 mm Hg. The LVOT to aortic valve VTI ratio is 0.21. The valve area by the peak velocity method is 0.61 cm^2. The regurgitation pressure half-time is 296 ms. - Tricuspid valve: There is trace regurgitation. - Pericardium, extracardiac: There is no significant pericardial effusion. - Pulmonary arteries: Systolic pressure can not be accurately estimated. - Compared to study of 05/10/18, the left ventricle function is slightly lower. The degree of is worse and degree of aortic regurgitation is worse. Study data: Transthoracic echocardiogram. Procedure: Transthoracic echocardiography was performed. Image quality was suboptimal. Intravenous Definity , 3 mlswas administered. Complete 2D, spectral Doppler, and color flow Doppler. Location: Bedside. Patient status: Inpatient. Patient room number: 441-02. Rhythm: Tachycardia. Findings Left ventricle: The cavity size is normal. Wall thickness is moderately increased. Systolic function is mildly reduced. The estimated ejection fraction is 45-50%. Regional wall motion abnormalities: Akinesis of the apicalinferoseptal myocardium. Hypokinesis of the basal-midanterolateral myocardium. Akinesis of the apicalanteroseptal myocardium. Hypokinesis of the basal-midinferolateral myocardium. There is no consistent Doppler evidence of clinically significant diastolic dysfunction. Right ventricle: The cavity size is mildly dilated. Systolic function is normal. Ventricular septum: Postoperative hypokinesis of the interventricular septum is observed. Left atrium: The atrium is severely dilated. Right atrium: The atrium is mildly dilated. Mitral valve: The Mitral valve annulus appears calcified. The leaflets are mildly thickened. There is no evidence of stenosis. There is trace to mild regurgitation. Aortic valve: Not well visualized. The leaflets are moderately calcified. Valve mobility is restricted. The findings are consistent with critical stenosis. There is moderate regurgitation. Tricuspid valve: The leaflets are normal thickness. There is no evidence of stenosis. There is trace regurgitation. Pulmonic valve: The leaflets are normal thickness. There is no evidence of stenosis. There is trace regurgitation. Aorta: Aortic root: The aortic root is appears normal. Ascending aorta: The ascending aorta is mildly dilated. Aortic arch: The aortic arch is poorly visualized. Pericardium: A prominent pericardial fat pad is present. There is no significant pericardial effusion. Pulmonary arteries: The main pulmonary artery is normal-sized. Systolic pressure can not be accurately estimated. Systemic veins: Inferior vena cava: The vessel is normal in size. There is (>= 50%) respiratory change in the IVC dimension. Measurements Left ventricle Value Ref Right atrium continued Value Ref CELIO, LAX 5.1 cm 4.2 - 5.8 ML dim, ES, A4C (H) 4.5 cm 2.6 - 4.4 ESD, LAX 3.4 cm 2.5 - 4.0 Estimated RAP 3 mm Hg --------- FS, LAX 33 % 25 - 43 PW, ED, LAX (H) 1.3 cm 0.6 - 1.0 Aortic valve Value Ref FS 33 % 25 - 43 Luis Carlos diam, ED 2.3 cm --------- Mid-wall FS 14 % Peak v, S 5.4 m/sec --------- PW, ED (H) 1.3 cm 0.6 - 1.0 VTI, S 106.0 cm --------- E', lat luis carlos, TDI (L) 7.1 cm/sec >=10.0 Mean grad, S 73.0 mm Hg -- ------- E/e', lat luis carlos, 17 Peak grad, S 116.6 mm Hg ----- ---- TDI LVOT/AV, VTI ratio 0.21 --------- E', med luis carlos, TDI 7.1 cm/sec >=7.0 CHRISTIANNE, VTI 0.65 cm^2 -- ------- E/e', med luis carlos, 17 CHRISTIANNE, Vmax 0.61 cm^2 ----- ---- TDI AR peak v 4.36 m/sec --------- E', avg, TDI 7.1 cm/sec AR PHT 296 ms ----- ---- E/e', avg, TDI (H) 17 <=14 AR peak grad 76 mm Hg -- ------- LVOT Value Ref Mitral valve Value Ref Diam, S 2.00 cm Peak E 1.23 m/sec --------- Area 3.1 cm^2 Decel time 165 ms --------- Peak carmen, S 1.05 m/sec PHT 106 ms --------- VTI, S 22.0 cm Mean grad, D 4.0 mm Hg --------- Peak grad, S 5 mm Hg Peak grad, D 8.0 mm Hg --------- Mean grad, S 3 mm Hg MVA, PHT 3.0 cm^2 --------- SV 63 ml SV/bsa 29 ml/m^2 Pulmonic valve Value Ref Peak v, S 1.17 m/sec --------- Ventricular septum Value Ref Peak grad, S 5.0 mm Hg --------- IVS, ED (H) 1.3 cm 0.6 - 1.0 Aortic root Value Ref Right ventricle Value Ref Root diam 3.4 cm <4.3 CELIO, LAX 4.5 cm CELIO minor ax, A4C (H) 3.9 cm 1.9 - 3.5 Ascending aorta Value Ref mid AAo AP diam, S 3.7 cm --------- Left atrium Value Ref Decending aorta Value Ref AP dim, ES (H) 5.20 cm 3.00 - Catia peak carmen 0.62 m/sec --------- 4.00 ML dim, A4C 5.2 cm Inferior vena cava Value Ref SI dim, A4C 6.4 cm Diam 1.8 cm --------- Vol/bsa, ES, 1-p (H) 52 ml/m^2 12 - 37 A4C Vol/bsa, ES, A/L (H) 63 ml/m^2 16 - 34 Right atrium Value Ref SI dim, ES (H) 5.5 cm 3.4 - 5.3 Legend: (L) and (H) jean-paul values outside specified reference range. Prepared and electronically signed by Jerome Solis MD 04/18/2019 12:30
--- NOTE | 2019-04-18 12:52 | HP ---
HISTORY AND PHYSICAL: DATE OF ADMISSION: HISTORY OF PRESENT ILLNESS: Mr. Thacker is a 74-year-old male who was in his usual state of health until the sudden onset of shortness of breath yesterday. He reported to the ED with chief complaint of shortness of breath, nonproductive cough, wheezing, and fever and also had a complaint of chest pain with deep coughing. Symptoms started yesterday. The patient stated that he had ambulated upstairs to the bathroom and became short of breath, which he states abnormal because he climbs stairs everyday without being dyspneic. He also had a complaint of fever and said they measured his temperature and it was 102 Fahrenheit. 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 Upon arrival in the ED, he was seen to be saturating at 92% on room air, where when he was placed on supplemental oxygen, there was a much improvement. He denies any chest pain at this moment. Denied nausea, vomiting, sore throat, and rhinorrhea. He admitted that shortness of breath and cough is worsening, so he decided to come to the ED for further evaluation. PAST MEDICAL HISTORY: Hypertension, hypothyroidism, hyperlipidemia, CAD with 4 vessel CABG, aortic stenosis, ankylosing spondylitis. PAST SURGICAL HISTORY: Bilateral hip replacement and CABG. HOME MEDICATIONS: 1. Aspirin 81 mg p.o. daily. 2. Atorvastatin 40 mg p.o. daily. 3. Cholecalciferol 5000 units daily. 4. Colace 100 mg p.o. b.i.d. 5. Metoprolol tartrate 25 mg p.o. b.i.d. 6. Multivitamins 1 tablet daily. 7. Niacin 1 tablet p.o. daily. 8. Ramipril 10 mg p.o. daily. 9. CoQ10 100 mg p.o. daily. 10. PreserVision AREDS 1 capsule or softgel p.o. b.i.d. 11. Vitamin B complex 1 p.o. daily. 12. Levothyroxine 50 mcg p.o. daily. 13. Nitroglycerin 0.4 mg sublingual t.i.d. p.r.n. for chest pain. ALLERGIES: There are no known drug allergies. FAMILY HISTORY: Son has Edvin disease. Mom when she was 80. Dad had history of CAD and when he was 60. One brother of unknown cause. SOCIAL HISTORY: The patient quit smoking 40 years ago. Denied use of alcohol and use of illicit drugs. Lives with . REVIEW OF SYSTEMS: Positive fever. Negative sore throat, nasal discharge. Positive chest pressure. Positive shortness of breath, cough, and wheezing. Negative abdominal pain, vomiting, diarrhea, and nausea. Review of 14 systems completed, all others are negative. PHYSICAL EXAMINATION APPEARANCE: Ill appearing, well nourished, lying in bed comfortably. INITIAL VITAL SIGNS: Temperature 101.2, pulse 98, respiratory rate 28, BP 145/ 84, pulse oximetry 92%. HEENT: Eyes: Sclerae anicteric. No conjunctival pallor. Mucous membrane moist. Pharynx appears normal. NECK: Supple, nontender. No thyromegaly. No lymphadenopathy. RESPIRATORY: Mildly tachypneic. No notable respiratory distress. Coarse crackles particularly on the right. Also coarse crackles on the left, basally. Bronchial breath sounds at the right base. CARDIOVASCULAR: Normal S1, S2 heard. No murmurs. Normal distal pulses in tibial and radial bilaterally. There is a murmur heard at aortic area suggestive of aortic stenosis. ABDOMEN: Soft, nontender. Normoactive bowel sounds present. MUSCULOSKELETAL: Trace pitting edema on the right lower extremity. Left lower extremity, no edema. Range of motion intact. NEUROLOGIC: Alert, awake, and oriented x3. Mentation is normal. Speech is fluent and appropriate. PSYCHIATRIC: Affect is normal, does not appear anxious or depressed with normal mood. SKIN: Warm, dry. No obvious rash. DIAGNOSTIC STUDIES/LAB DATA: Hematology: WBC 8.6, RBC 4.13, hemoglobin 13.8, hematocrit 40, MCV 97, MCH 33, MCHC 34, RDW 14, platelet count 158, MPV 8.7. Chemistry: Sodium 135, potassium 4.0, chloride 105, carbon dioxide 24, anion gap 6, BUN 16, creatinine 0.29, estimated GFR non- , BUN/ creatinine ration of 16.7, glucose 139, lactic acid 1.0 calcium 9.0. Total bilirubin 1.90, AST 15, ALT 19, alkaline phosphatase 97. Initial troponin 0.06. Total protein 6.5, albumin 3.8, globulin 2.7, albumin/globulin ratio 1.4. Radiology: Chest x-ray; bilateral air space disease with air bronchograms consistent with bilateral pneumonia. EKG: Tachycardia at the rate of 116; rhythm, sinus tachycardia with ST bigeminy; no STEMI noted. ASSESSMENT AND PLAN: A 74-year-old male male presented to the ED with complaints of shortness of breath, nonproductive cough, wheezing, fever, chest tightness with chest x-ray findings suggestive of bilateral pneumonia and elevated troponin. The patient will be admitted to the medical floor telemetry unit with current diagnosis of pneumonia, shortness of breath on exertion, elevated troponin, hypertension, hypothyroidism, coronary artery disease, status post coronary artery bypass graft, aortic stenosis, hyperlipidemia, and ankylosing spondylitis. For pneumonia, the patient will be placed on IV ceftriaxone 1 g daily and IV azithromycin 500 mg daily to cover atypical. The patient will continue on urgent titration of supplemental oxygen as needed to titrate with SPO2 of greater than 92%. Follow up a.m. lab. Blood and sputum culture to be followed. Supplemental oxygen as needed. Continue IV fluid. Continue IV antibiotics. For elevated troponin, the patient will be continued on serial troponin monitor. Nitro for chest pain per protocol, echocardiogram, cardiology consult in the morning. Since the patient has a history of aortic stenosis, Cardiology will also follow. For coronary artery disease and four-vessel coronary artery bypass graft, continue aspirin and statin. Severe aortic stenosis, no acute issues now, FU Echocardiogram, we will continue to monitor. For hypertension, it is controlled, but the patient will continue his home meds metoprolol and ramipril with holding parameters. For hyperlipidemia, the patient will continue niacin and statin and continue with heart healthy diet. Hypothyroidism, continue with levothyroxine. Ankylosing spondylitis, no acute issues now. For gastroesophageal reflux disease, continue gastrointestinal prophylaxis with proton pump inhibitors. The patient originally on ranitidine, but does not want to continue that for now. The patient will be placed on Protonix daily. The patient is to be full code at this time. For DVT prophylaxis, the patient will be placed on Lovenox. Nutrition, cardiac diet. TIME SPENT: Time spent on this admission was greater than 60 minutes. Greater than half of the time was spent [id number] with the patient obtaining my history and physical, the other half of the time spent going over the plan of care with the patient, the family, and implementing plan of care. Thank you very much for the opportunity to partake in the health care needs of this vickie gentleman. [id number]/[facility] #: [id number] HANY
[2019-04-18] MEDS ORDERED: Diazepam TAB(*) 5 MG PO PRN (15:32)
[2019-04-18] MEDS ORDERED: diPHENhydraMINE PO* 25 MG PO PRN (15:32)
[2019-04-18 17:11] LABS: C Reactive Protein 93.02 mg/L (<8.01)
[2019-04-18] MEDS ORDERED: Albuterol/Ipratropium NEB.SOL* Albuterol 2.5 MG/Ipratropium 0.5 MG 3 ML INH PRN (18:43)
[2019-04-18] MEDS ORDERED: cefTRIAXone(*) 1 GM in NS 0.9% 50 ML* 50 ML IVPB SCH (20:00)
[2019-04-18] MEDS ORDERED: Azithromycin 500 mg/250 ml NS 500 MG/250 ML BAG IVPB SCH (21:00)
[2019-04-18] MEDS ORDERED: Atorvastatin* 40 MG TAB PO SCH (21:00)
[2019-04-18] MEDS: Acetaminophen TAB* 325 MG PO PRN (23:54)
[2019-04-19] MEDS ORDERED: Levothyroxine TAB* 50 MCG TAB PO SCH (06:00)
[2019-04-19] MEDS ORDERED: NS 0.9% 1000 ML** 1,000 ML IV SCH (06:00)
[2019-04-19] MEDS: Cholecalciferol TAB* 1000 UNITS PO SCH (08:19)
[2019-04-19] MEDS: Aspirin 81 mg CHEW TAB* 81 MG TAB.CHEW PO SCH (08:19)
[2019-04-19] MEDS: Vitamin THERAPEUTIC TAB PO SCH (08:20)
[2019-04-19] MEDS: Docusate CAP* 100 MG PO SCH (08:20)
[2019-04-19] MEDS: Vitamin B Complex TAB PO SCH (08:20)
[2019-04-19] MEDS: Metoprolol Tartrate TAB* 25 MG PO SCH (08:20)
[2019-04-19] MEDS: Niacin ER CAP* 500 MG CAP.ER PO SCH (08:22)
[2019-04-19] MEDS: Multivitamins/Minera Areds(NF) 1 CAP CAP PO SCH (08:23)
[2019-04-19] MEDS ORDERED: Iohexol 350 (CONTRAST) 200 ML MDV IV ONE ×2 (08:23→13:45)
[2019-04-19] MEDS ORDERED: Heparin 2 UNITS/ML IVPREMIX* 0 ML IV ONE (08:23)
[2019-04-19] MEDS ORDERED: Midazolam* 1 MG/ML 5 ML VIAL (5 MG) ONE ×2 (08:23→14:12)
[2019-04-19] MEDS ORDERED: fentaNYL* 50 MCG/ML 2 ML VIAL (100 MCG VIAL) ONE ×2 (08:23→14:12)
[2019-04-19] MEDS ORDERED: Lidocaine 1% INJ* 10 MG/ML 30 ML SDV ONE ×2 (08:23→13:45)
[2019-04-19] MEDS: Coenzyme Q10 (NF) ** ENTER STREGNTH IN LABEL DIRECTIONS PO SCH (08:23)
[2019-04-19] MEDS ORDERED: Furosemide IV* 10 MG/ML VIAL (40 MG) IV ONE (08:33)
[2019-04-19] MEDS ORDERED: Heparin 2 UNITS/ML IVPREMIX* 2,000 ML IV ONE (13:45)
--- NOTE | 2019-04-19 15:31 | PN ---
Subjective Date of Service: 04/19/19 Interval History: Patient has no complaints this morning. He denies shortness of breath, chest pain, fever/chills, abd pain, cough. Objective Active Medications: Acetaminophen (Tylenol Tab*) 650 mg PO Q6H PRN PRN Reason: PAIN - MILD Last Admin: 04/18/19 23:54 Dose: 650 mg Al Hydrox/Mg Hydrox/Simethicone (Maalox Plus*) 30 ml PO Q6H PRN PRN Reason: INDIGESTION Albuterol/Ipratropium (Duoneb (Albuterol 2.5 Mg/Ipratropium 0.5 Mg)) 1 neb INH Q4H PRN PRN Reason: SOB/WHEEZING Aspirin (Aspirin 81 Mg Chew Tab*) 81 mg PO DAILY [facility] Last Admin: 04/19/19 08:19 Dose: 81 mg Atorvastatin Calcium (Lipitor*) 40 mg PO BEDTIME [facility] Last Admin: 04/18/19 21:29 Dose: 40 mg Cholecalciferol (Vitamin D Tab*) 5,000 units PO DAILY [facility] Last Admin: 04/19/19 08:19 Dose: 5,000 units Coenzyme Q10 (Coenzyme Q10 (Nf)) 1 cap PO DAILY [facility] Last Admin: 04/19/19 08:23 Dose: Not Given Docusate Sodium (Colace Cap*) 100 mg PO BID [facility] Last Admin: 04/19/19 08:20 Dose: 100 mg Enoxaparin Sodium (Lovenox(*)) 40 mg SUBCUT BEDTIME [facility] Last Admin: 04/18/19 21:29 Dose: 40 mg Azithromycin (Zithromax 500 Mg/250 Ml) 500 mg in 250 mls @ 250 mls/hr IVPB Q24H [facility] Stop: 04/22/19 21:59 Last Admin: 04/18/19 22:34 Dose: 250 mls/hr Ceftriaxone Sodium 1 gm/ (Sodium Chloride) 50 mls @ 100 mls/hr IVPB Q24H [facility] Last Admin: 04/18/19 21:29 Dose: 100 mls/hr Sodium Chloride (Ns 0.9% 1000 Ml) 1,000 mls @ 75 mls/hr IV PER RATE [facility] Stop: 04/19/19 23:59 Last Admin: 04/19/19 06:07 Dose: 75 mls/hr Levothyroxine Sodium (Synthroid Tab*) 50 mcg PO DAILY@0600 [facility] Last Admin: 04/19/19 06:07 Dose: 50 mcg Metoprolol Tartrate (Lopressor Tab*) 25 mg PO BID [facility] Last Admin: 04/19/19 08:20 Dose: 25 mg Multivitamins (Theragran Tab*) 1 tab PO DAILY [facility] Last Admin: 04/19/19 08:20 Dose: 1 tab Multivitamins/Minerals (Preservision Areds(Multivitamins/Mineral)(Nf)) 1 cap PO BID [facility] Last Admin: 04/19/19 08:23 Dose: Not Given Niacin (Niaspan Er Cap*) 1,000 mg PO DAILY [facility] Last Admin: 04/19/19 08:22 Dose: 1,000 mg Ondansetron HCl (Zofran Inj*) 4 mg IV Q4H PRN PRN Reason: NAUSEA/VOMITING Vitamin B Complex/Vitamin E (B Complex-50*) 1 tab PO DAILY [facility] Last Admin: 04/19/19 08:20 Dose: 1 tab Vital Signs - 8 hr 04/19/19 04/19/19 04/19/19 07:30 08:20 08:21 Temperature 97.7 F Pulse Rate 86 Respiratory 16 18 18 Rate Blood Pressure 129/66 (mmHg) O2 Sat by Pulse 99 Oximetry 04/19/19 04/19/19 11:00 11:07 Temperature 97.8 F Pulse Rate 87 Respiratory 22 20 Rate Blood Pressure 149/82 (mmHg) O2 Sat by Pulse 94 Oximetry Oxygen Devices in Use Now: Nasal Cannula Appearance: Obese, elderly white male, laying in bed, appearing comfortable in NAD Eyes: No Scleral Icterus, - - PERRL Ears/Nose/Mouth/Throat: Mucous Membranes Moist Neck: Trachea Midline Respiratory: Symmetrical Chest Expansion and Respiratory Effort, Clear to Auscultation Cardiovascular: RRR, - - high pitched, systolic murmur, grade 3-4, auscultated best at mitral space Abdominal: - - abd soft, nontender, nondistended Extremities: No Edema, No Clubbing, Cyanosis Skin: No Rash or Ulcers Neurological: Alert and Oriented x 3 Result Diagrams: 04/18/19 07:05 04/18/19 07:05 Additional Lab and Data: Lab Results 04/17/19 Range/Units 21:47 WBC 8.6 (3.5-10.8) 10^3/uL RBC 4.13 L (4.18-5.48) 10^6 /uL Hgb 13.8 L (14.0-18.0) g/dL Hct 40 L (42-52) % MCV 97 H (80-94) fL MCH 33 H (27-31) pg MCHC 34 (31-36) g/dL RDW 14 (10-15) % Plt Count 168 (150-450) 10^3/uL MPV 8.7 (7.4-10.4) fL Neut % (Auto) 87.7 % Lymph % (Auto) 6.2 % Gibson % (Auto) 5.7 % Eos % (Auto) 0.2 % Baso % (Auto) 0.2 % Absolute Neuts (auto) 7.5 (1.5-7.7) 10^3/ul Absolute Lymphs (auto) 0.5 L (1.0-4.8) 10^3/ul Absolute Monos (auto) 0.5 (0-0.8) 10^3/ul Absolute Eos (auto) 0.0 (0-0.6) 10^3/ul Absolute Basos (auto) 0.0 (0-0.2) 10^3/ul Absolute Nucleated RBC 0.0 10^3/ul Nucleated RBC % 0.1 Microbiology and Other Data: Microbiology 04/17/19 22:39 Aerobic Blood Culture - Preliminary Blood Venous No Growth Day 1 Anaerobic Blood Culture - Preliminary No Growth Day 1 04/17/19 22:39 Aerobic Blood Culture - Preliminary Blood Venous No Growth Day 1 Anaerobic Blood Culture - Preliminary No Growth Day 1 04/18/19 12:15 Gram Stain - Final Sputum Assess/Plan/Problems-Billing Assessment: 74 yo white male with PMHx of severe , hx 4 vessel CABG, HTN, HLD, hypothyroidism, ankylosing spondylitis, and GERD presents with shortness of breath, cough, and chest pain. - Patient Problems (1) Pneumonia Current Visit: Yes Status: Acute Code(s): J18.9 - PNEUMONIA, UNSPECIFIED ORGANISM SNOMED Code(s): 424369812 Comment: -presents with fever, SOB, cough -CXR appears to have right sided consolidation -afebrile since admission -continue ceftriaxone and azithromycin (2) Elevated troponin Current Visit: No Status: Acute Code(s): R79.89 - OTHER SPECIFIED ABNORMAL FINDINGS OF BLOOD CHEMISTRY SNOMED Code(s): 735794959 Comment: -presented with inspiratory chest pain -troponin stable at 0.06 -EKG without ischemic changes -has hx of 4 vessel CABG and does have some new demand in setting of pneumonia -cardiac catheterization complete read pending but Dr. Solis tells me there are no areas of concern, including in his CABG vessels (3) Critical aortic valve stenosis Current Visit: Yes Status: Acute Code(s): I35.0 - NONRHEUMATIC AORTIC (VALVE ) STENOSIS SNOMED Code(s): 350286997 Comment: -previously known severe aortic stenosis -TTE 04/18/19 demonstrates worsening of , now critical -has had discussions with Dr. Hua outpatient and is interested in valve replacement -planning for transfer to [facility], assisted by Dr. Solis (4) Acute respiratory failure with hypoxia Current Visit: Yes Status: Acute Code(s): J96.01 - ACUTE RESPIRATORY FAILURE WITH HYPOXIA SNOMED Code(s): 11456184 Comment: -appears multifactorial -patient has pneumonia, though additionall has critical and received large volume fluid, could be related to pulmonary edema (5) Hypertension Current Visit: No Status: Acute Code(s): I10 - ESSENTIAL (PRIMARY) HYPERTENSION SNOMED Code(s): 74431323 Comment: -cardiology recommends holding ISSA-I -monitoring -overall normotensive (6) CAD (coronary artery disease) Current Visit: No Status: Acute Code(s): I25.10 - ATHSCL HEART DISEASE OF [place] CORONARY ARTERY W/O ANG PCTRS SNOMED Code(s): 10029050 Comment: -continue ASA, statin, metoprolol (7) Hypothyroidism Current Visit: Yes Status: Acute Code(s): E03.9 - HYPOTHYROIDISM, UNSPECIFIED SNOMED Code(s): 87099134 Comment: -continue levothyroxine (8) DVT prophylaxis Current Visit: No Status: Acute Code(s): PVA4610 - SNOMED Code(s): 428171796 Comment: -lovenox (9) Full code status Current Visit: No Status: Acute Code(s): Z78.9 - OTHER SPECIFIED HEALTH STATUS SNOMED Code(s): 269531860 Status and Disposition: pending possible transfer to [facility]
--- NOTE | 2019-04-19 17:17 | TRS ---
DATE OF ADMISSION: 04/17/2019. DATE OF TRANSFER: 04/19/2019. ATTENDING PHYSICIAN WHILE IN THE HOSPITAL: Dr. Chanel Porter * (dictated by WENDI Shine). CONSULTING CARDIOLOGY SERVICE: Dr. Jerome Solis and Camille Dale NP. PRIMARY DIAGNOSES: 1. Critical aortic stenosis. 2. Community-acquired pneumonia. 3. Acute hypoxic respiratory failure secondary to a combination of critical aortic stenosis, pneumonia, and likely pulmonary edema. 4. Sepsis secondary to pneumonia. PERTINENT STUDIES WHILE IN THE HOSPITAL: 1. Chest x-ray on 04/17/2019, impression: Patchy bilateral perihilar airspace disease. The differential includes infectiousconsolidation versus pulmonary alveolar edema. There is a small left pleural effusion. 2. Transthoracic echocardiogram on 04/18/2019, pertinent findings include an ejection fraction of 45 to 50 percent. Akinesis of the apical inferoseptal myocardium. Hypokinesis of the basal mid anterolateral myocardium. Akinesis of the apical anteroseptal myocardium. Aortic valve mobility is restricted. Findings are consistent with critical stenosis. There is moderate regurgitation. Peak systolic velocity of 5.4 m/sec. Mean systolic gradient is 73 mmHg. The LVOT to aortic valve VTI ratio is 0.21. Compared to the study of 05/10/2018, the left ventricle function is slightly lower and the degree of is worse and the degree of AR is worse. Please see full reports for further details. PERTINENT PROCEDURES WHILE IN THE HOSPITAL: Cardiac catheterization on 2019, performed by Dr. Solis. The full report is pending at this time, but I did discuss the report with Dr. Solis who tells me that the cardiac vessels are patent, including his prior CABG vessels. PERTINENT LAB DATA: White blood cell count at admission 8.6. Troponin 0.06 times four readings. CRP 93.02. Influenza A and B negative. HISTORY OF PRESENT ILLNESS/HOSPITAL COURSE: Davey Thacker is a 74-year-old white male with a past medical history significant for a prior history of known severe aortic stenosis, coronary artery disease, status post four vessel CABG, ankylosing spondylitis, hypertension, and hypothyroidism who presented to the emergency department on 04/17/2019 with complaints of shortness of breath, cough , wheezing and a fever. The patient was found to be febrile in the emergency department and did have a fever again on the evening of 04/18/2019. The patient was treated empirically for community-acquired pneumonia with Ceftriaxone and Azithromycin. The patient was found to have a new oxygen requirement of 2 liters via nasal cannula. He was found to have worsening of his aortic stenosis to the point of a critical level. Cardiology Service was consulted and Dr. Solis proceeded with cardiac catheterization considering his critical aortic stenosis, his symptoms, and mild troponinemia to 0.06. There was no concern for ACS as catheterization showed clear vessels. Dr. Solis did discuss this case with Dr. Marcelo at [facility] who believes that this patient would be a good candidate for aortic valve replacement and agreed with the transfer, although requested the Hospitalist team accept and that he would be the consulting service. The patient on the day of transfer is overall feeling well. He does not feel short of breath at rest. He denies chest pain. He feels his cough is infrequent and denies fever or chills, though as I had previously mentioned he was febrile overnight to a temperature of 100.6. The patient is agreeable to transfer to [facility] and is interested in intervention for his aortic valve stenosis. PHYSICAL EXAMINATION: Please see progress notes for today's details. TRANSFER INSTRUCTIONS: We are transferring this patient to a higher level of care with a facility that can provide aortic valve repair versus replacement. The patient will be non-emergently transported to [facility] via [facility] ambulance. I do not anticipate the patient to be on any medications en route and he will have continued cardio-pulmonary monitoring. He is currently using 2 liters of oxygen via nasal cannula. Dr. Francheska Medina is the admitting hospitalist and as previously mentioned Dr. Marcelo is planning on being the consulting car pre cooler. CONDITION ON TRANSFER: Stable. TRANSFER DISPOSITION: [facility]. ACCEPTING PHYSICIAN: Dr. Francheska Medina of the Hospitalist Service. TIME SPENT: Approximately 40 minutes were spent on this transfer, approximately half this time was spent evaluating the patient, discussing the plan of care, discussing the transport plan, and the patient is in agreement. WENDI SHINE [id number]/[facility] #: [id number] [facility] CENTERMadelyn
[2019-04-19 17:52] VITALS: BP 136/66
[2019-04-19] MEDS: Acetaminophen TAB* 325 MG PO PRN (18:06)
--- NOTE | 2019-04-19 18:15 | CATH ---
CC: Dr. Darrin Hua; Dr. Christian Marcelo, [facility], Cardiology Division * CARDIAC CATHETERIZATION REPORT: DATE OF PROCEDURE: 04/19/19 - ROOM #44` PROCEDURE: Cardiac catheterization. INDICATION FOR PROCEDURE: Coronary artery disease, coronary artery bypass surgery, aortic stenosis. The patient is a 74-year-old gentleman with a history of known coronary artery disease, history of coronary artery bypass surgery 15 years ago. At that time, he had a ALONZO to his LAD, saphenous vein graft to his ramus artery, saphenous vein graft to OM2, and a saphenous vein graft to the PDA. The patient has known significant aortic stenosis. The patient was admitted to the hospital with congestive heart failure. An echocardiogram showed normal LV function with severe aortic stenosis, peak velocity of 5.1 meters per second, mean gradient of 70 mmHg. Cardiac catheterization was recommended in preparation for aortic valve replacement with TAVR. DESCRIPTION OF PROCEDURE: The patient was brought to the procedure room in a fasting state. Informed consent had been obtained prior to the procedure. All labs had been reviewed. The patient was placed supine on the procedure table. His femoral areas were prepped and draped in usual fashion. 1% lidocaine was used for local anesthesia. The femoral artery was entered by a Seldinger technique and a guidewire was placed. Over the guidewire, a 6-Chadian sheath was placed. The patient underwent coronary angiography and saphenous vein graft angiography with a 6-Chadian JL4 catheter, a 6-Chadian AR1 catheter, and a 6 -Chadian STEPHAN catheter. At the end of the procedure, all sheaths and catheters were removed. The patient did have a Mynx closure device deployed after an angiogram of the femoral artery showed normal position of the catheter. The patient tolerated the procedure well with no complications. A total of 170 cc of Omnipaque dye was used. A total of 14.5 minutes of fluoro time was used. Initial blood pressure 141/75 with a mean of 105. CORONARY ARTERIES: 1. Left main artery: The left main was normal in size. It bifurcated into the LAD and circumflex. There was no evidence of stenosis. 2. Left circumflex artery: The circumflex artery was normal in size. Jail down the circumflex artery, it was completely occluded. It did give off first obtuse marginal branch, which had a proximal 50% stenosis. 3. Left anterior descending artery: The LAD was normal in size. It was heavily calcified in the proximal vessel. The first diagonal vessel was occluded. The second diagonal vessel was open and patent. After the second diagonal vessel, the LAD was occluded. 4. Right coronary artery: The right coronary artery was a large dominant vessel giving off the PDA. The right coronary artery had moderate calcification. It had mild disease throughout. The PDA was occluded. There was a large posterolateral branch without significant coronary artery disease. 5. Saphenous vein graft to the PDA is open and patent. The anastomosis is normal. 6. Saphenous vein graft to the ramus artery was open and patent. The ramus artery itself was without disease. There was retrograde filling of the first diagonal vessel. 7. Saphenous vein graft to the OM2 vessel was open and patent. There was no disease in the OM2. There was retrograde filling of a branch vessel. 8. Internal mammary artery to the distal LAD is open and patent. The anastomosis was normal. There is no stenosis in the LAD itself. IMPRESSION: 1. Significant 3-vessel disease as described above. 2. ALONZO to the LAD is open and patent. 3. All saphenous vein grafts are open and patent with normal anastomosis. RECOMMENDATIONS: The patient will be transferred to [facility] for evaluation for TAVR procedure. [id number]/[facility] #: [id number] HANY
== END 2019-04-19 18:10 | disposition short-term general hospital (02) | DRG 871 ==
LOC: ED 21:35 → MEDTELE 23:52
PROVIDERS: ADMIT Family Medicine; ATTEND Internal Medicine
PROC: B2181ZZ Fluoroscopy of Left Internal Mammary Bypass Graft using Low Osmolar Contrast (ICD-10-PCS; 2019-04-19)
PROC: B2131ZZ Fluoroscopy of Multiple Coronary Artery Bypass Grafts using Low Osmolar Contrast (ICD-10-PCS; 2019-04-19)
PROC: B2111ZZ Fluoroscopy of Multiple Coronary Arteries using Low Osmolar Contrast (ICD-10-PCS; principal; 2019-04-19 14:00)
DX: A41.9 Sepsis, unspecified organism (principal); J18.9 Pneumonia, unspecified organism; J96.01 Acute respiratory failure with hypoxia; I50.22 Chronic systolic (congestive) heart failure; I24.8 Other forms of acute ischemic heart disease; I35.0 Nonrheumatic aortic (valve) stenosis; E03.9 Hypothyroidism, unspecified; I25.10 Atherosclerotic heart disease of native coronary artery without angina pectoris; E78.00 Pure hypercholesterolemia, unspecified; K21.9 Gastro-esophageal reflux disease without esophagitis; M45.9 Ankylosing spondylitis of unspecified sites in spine; Z96.643 Presence of artificial hip joint, bilateral; E78.5 Hyperlipidemia, unspecified; I49.3 Ventricular premature depolarization; I11.0 Hypertensive heart disease with heart failure; I71.2 Thoracic aortic aneurysm, without rupture; Z95.1 Presence of aortocoronary bypass graft; Z87.891 Personal history of nicotine dependence; Z79.890 Hormone replacement therapy; Z79.82 Long term (current) use of aspirin; Z79.899 Other long term (current) drug therapy
CPT/HCPCS: 36415; 71046; 80048; 80053; 81003; 83605; 83735; 83880; 84484; 85025; 85610; 85730; 86140; 87040; 87070; 87205; 93005; 93306; 93455; 94640; 99156; 99157; 99284; A9270-GY; C1760; C1887; C8929; J0456; J0696; J1644; J1650; J1940; J2250; J3010; J3475

== ENCOUNTER 2023-07-21 19:53 | Observation (INO) ==
[2023-07-21 20:13] LABS: ABS Lymphocytes 0.4 10^3/uL (1.0-4.8); ABS Monocytes 0.5 10^3/uL (0.0-1.1); ABS Neutrophils 14.6 10^3/uL (1.5-7.6); ABS Nucleated RBC 0.01 10^3/ul; Eosinophil % 0.2 %; Hematocrit 33.8 % (38-53); Lymphocyte % 2.5 %; Mean Corpuscular Hemoglobin 29.4 pg (27-33); Mean Corpuscular Hgb Conc 32.5 g/dL (31-36); Mean Corpuscular Volume 90.4 fL (80-97); Mean Platelet Volume 8.3 fL (7.5-11.2); Nucleated Red Blood Cells % 0.1 %/100WBC (0.0-0.8); Platelet Count 355 10^3/uL (150-450); Red Blood Count 3.74 10^6/uL (4.06-5.63); White Blood Count 15.6 10^3/uL (3.6-10.2)
[2023-07-21 20:27] LABS: INR 1.58 (0.83-1.13)
[2023-07-21 20:38] LABS: High Sens Troponin Baseline 19 pg/mL (<20)
[2023-07-21 20:51] LABS: ALT 22 U/L (7-52); AST 23 U/L (13-39); Albumin 3.7 g/dL (3.2-5.2); Albumin/Globulin Ratio 1.2 (1-3); Alcohol, S < 13 mg/dL (<13); Alkaline Phosphatase 103 U/L (35-149); Anion Gap 8 mmol/L (2-16); Blood Urea Nitrogen 23 mg/dL (6-24); C Reactive Protein 25.57 mg/L (<8.01); CO2 Carbon Dioxide 27 mmol/L (22-32); Calcium 8.8 mg/dL (8.6-10.3); Chloride 95 mmol/L (101-111); Creatinine, Serum 1.27 mg/dL (0.67-1.17); Globulin 3.2 g/dL (2-4); Glucose 148 mg/dL (70-100); Potassium 4.9 mmol/L (3.5-5.0); Sodium 130 mmol/L (135-145); Total Bilirubin 0.8 mg/dL (0.2-1.0); Total Protein 6.9 g/dL (6.4-8.9); eGFR CKD-EPI 57.1 (>60)
[2023-07-21 21:05] LABS: TSH Ultra Thyroid Stim Horm 2.12 mcIU/mL (0.34-5.60)
[2023-07-21] MEDS: Iodixanol (CONTRAST) 320 MG/ML 100 ML SDV IV ONE (21:27)
[2023-07-21 21:38] LABS: High Sensitivity Troponin 1 Hr 49 pg/mL (<20)
[2023-07-21] MEDS: cefTRIAXone 1 gm/50 mL D5W 1 GM/50 ML BAG IV ONE (23:56)
[2023-07-22] MEDS: Azithromycin 500 mg/250 ml NS 500 MG/250 ML BAG IVPB ONE (00:30)
[2023-07-22 00:38] LABS: Urine Appearance Clear; Urine Bacteria Absent /HPF (Absent); Urine Bilirubin Negative (Negative); Urine Blood Negative (Negative); Urine Color Yellow; Urine Glucose Negative (Negative); Urine Ketones Negative (Negative); Urine Nitrite Negative (Negative); Urine Protein 1+ (>=30 mg/dL) (Negative); Urine Red Blood Cell Absent /HPF (0-Trace); Urine Specific Gravity >1.050 (1.002-1.030); Urine Urobilinogen Negative (Negative); Urine White Blood Cell Absent /HPF (0-Trace)
[2023-07-22] MEDS: Lactated Ringers 1000 ml BAG 1,000 ML IV ONE (01:42)
[2023-07-22 05:57] LABS: ABS Lymphocytes 0.7 10^3/uL (1.0-4.8); ABS Monocytes 0.6 10^3/uL (0.0-1.1); ABS Neutrophils 10.8 10^3/uL (1.5-7.6); ABS Nucleated RBC 0.01 10^3/ul; Eosinophil % 0.2 %; Hematocrit 30.1 % (38-53); Hemoglobin 10.4 g/dL (13.2-16.3); Lymphocyte % 5.5 %; Mean Corpuscular Hemoglobin 31.2 pg (27-33); Mean Corpuscular Hgb Conc 34.5 g/dL (31-36); Mean Corpuscular Volume 90.4 fL (80-97); Mean Platelet Volume 8.1 fL (7.5-11.2); Platelet Count 281 10^3/uL (150-450); Red Blood Count 3.33 10^6/uL (4.06-5.63); Red Cell Distribution Width 14.2 % (12-17); White Blood Count 12.1 10^3/uL (3.6-10.2)
[2023-07-22 07:03] LABS: Albumin 3.2 g/dL (3.2-5.2); Calcium 8.4 mg/dL (8.6-10.3); Creatinine, Serum 1.14 mg/dL (0.67-1.17); Globulin 3.1 g/dL (2-4); Magnesium 1.9 mg/dL (1.9-2.7); Phosphorus 3.8 mg/dL (2.5-5.0); Potassium 4.5 mmol/L (3.5-5.0); Total Protein 6.3 g/dL (6.4-8.9)
[2023-07-22] MEDS ORDERED: Zosyn per Pharmacy NOTE FOLLOW UP SCH (11:00)
[2023-07-22] MEDS: Piperacillin/Tazobac 3.375 BAG 3.375 GM/100 ML BAG IV ONE (11:34)
[2023-07-22] MEDS ORDERED: Azithromycin 500 mg/250 ml NS 500 MG/250 ML BAG IVPB SCH (17:30)
[2023-07-22] MEDS: ZOSYN 3.375 GM Q8H per EXTENDED INFUSION IV SCH (17:59)
[2023-07-22] MEDS ORDERED: cefTRIAXone 1 gm/50 mL D5W 1 GM/50 ML BAG IV SCH (21:00)
[2023-07-23 05:35] LABS: ABS Eosinophils 0.1 10^3/uL (0.0-0.5); ABS Lymphocytes 0.7 10^3/uL (1.0-4.8); ABS Monocytes 0.6 10^3/uL (0.0-1.1); ABS Neutrophils 7.4 10^3/uL (1.5-7.6); ABS Nucleated RBC 0.01 10^3/ul; Eosinophil % 0.9 %; Hematocrit 28.8 % (38-53); Hemoglobin 10.1 g/dL (13.2-16.3); Lymphocyte % 7.5 %; Mean Corpuscular Hemoglobin 31.5 pg (27-33); Mean Corpuscular Hgb Conc 35.1 g/dL (31-36); Mean Corpuscular Volume 89.6 fL (80-97); Mean Platelet Volume 8.5 fL (7.5-11.2); Nucleated Red Blood Cells % 0.1 %/100WBC (0.0-0.8); Platelet Count 277 10^3/uL (150-450); Red Blood Count 3.21 10^6/uL (4.06-5.63); White Blood Count 8.8 10^3/uL (3.6-10.2)
[2023-07-23 05:54] LABS: Calcium 8.5 mg/dL (8.6-10.3); Creatinine, Serum 1.03 mg/dL (0.67-1.17); Magnesium 1.8 mg/dL (1.9-2.7); eGFR CKD-EPI 73.4 (>60)
[2023-07-23] MEDS: Sulfur Hexaflouride MICROSPHR 25 MG VIAL IV ONE (07:24)
[2023-07-23] MEDS: Magnesium Sulfate 2 gm BAG 2 GM/50 ML BAG IVPB ONE (11:48)
[2023-07-24 06:35] LABS: ABS Basophils 0.1 10^3/uL (0.0-0.1); ABS Eosinophils 0.1 10^3/uL (0.0-0.5); ABS Lymphocytes 0.5 10^3/uL (1.0-4.8); ABS Monocytes 0.6 10^3/uL (0.0-1.1); ABS Neutrophils 9.2 10^3/uL (1.5-7.6); Eosinophil % 0.5 %; Hematocrit 31.4 % (38-53); Hemoglobin 10.9 g/dL (13.2-16.3); Lymphocyte % 4.5 %; Mean Corpuscular Hemoglobin 31.4 pg (27-33); Mean Corpuscular Hgb Conc 34.7 g/dL (31-36); Mean Corpuscular Volume 90.5 fL (80-97); Mean Platelet Volume 7.9 fL (7.5-11.2); Platelet Count 315 10^3/uL (150-450); Red Blood Count 3.47 10^6/uL (4.06-5.63); Red Cell Distribution Width 14.3 % (12-17); White Blood Count 10.3 10^3/uL (3.6-10.2)
[2023-07-24 07:27] LABS: Calcium 8.5 mg/dL (8.6-10.3); Creatinine, Serum 1.09 mg/dL (0.67-1.17); Magnesium 2.1 mg/dL (1.9-2.7); Potassium 4.1 mmol/L (3.5-5.0); eGFR CKD-EPI 68.6 (>60)
[2023-07-24] MEDS ORDERED: Aminophylline 25 MG/ML VIAL ONE (07:29)
[2023-07-24] MEDS ORDERED: Regadenoson 0.4 MG/5 ML SYRINGE ONE (07:29)
[2023-07-24 13:55] VITALS: BP 150/83
== END 2023-07-24 16:32 | disposition home or self-care (01) ==
LOC: EDHOLD 19:53 → ED 19:53 → SUATTDRO 07-22 00:38 → MEDTELE 07-22 14:15
PROVIDERS: ADMIT Internal Medicine; ATTEND Hospitalist

== ENCOUNTER 2023-08-21 17:26 | Observation (INO) ==
[2023-08-21 18:27] LABS: ABS Lymphocytes 0.3 10^3/uL (1.0-4.8); ABS Monocytes 0.5 10^3/uL (0.0-1.1); ABS Neutrophils 9.9 10^3/uL (1.5-7.6); Eosinophil % 0.2 %; Hematocrit 34.5 % (38-53); Hemoglobin 11.2 g/dL (13.2-16.3); Lymphocyte % 3.2 %; Mean Corpuscular Hemoglobin 29.4 pg (27-33); Mean Corpuscular Hgb Conc 32.4 g/dL (31-36); Mean Corpuscular Volume 90.9 fL (80-97); Mean Platelet Volume 8.6 fL (7.5-11.2); Platelet Count 301 10^3/uL (150-450); Red Blood Count 3.79 10^6/uL (4.06-5.63); Red Cell Distribution Width 15.4 % (12-17); White Blood Count 10.8 10^3/uL (3.6-10.2)
[2023-08-21 18:41] LABS: INR 1.71 (0.83-1.13)
[2023-08-21 19:05] LABS: Albumin 3.7 g/dL (3.2-5.2); C Reactive Protein 16.5 mg/L (<8.01); Calcium 9.3 mg/dL (8.6-10.3); Creatinine, Serum 1.18 mg/dL (0.67-1.17); Globulin 3.6 g/dL (2-4); Potassium 4.9 mmol/L (3.5-5.0); Total Bilirubin 0.9 mg/dL (0.2-1.0); Total Protein 7.3 g/dL (6.4-8.9); eGFR CKD-EPI 62.4 (>60)
[2023-08-21 20:27] LABS: High Sensitivity Troponin 1 Hr 13 pg/mL (<20)
[2023-08-21] MEDS: Piperacillin/Tazobac 3.375 BAG 3.375 GM/100 ML BAG IV ONE (22:11)
[2023-08-21] MEDS: Lactated Ringers 1000 ml BAG IV.FLUID IV ONE (22:15)
[2023-08-21] MEDS ORDERED: Zosyn per Pharmacy NOTE FOLLOW UP SCH (23:00)
[2023-08-22] MEDS ORDERED: Polyethylene Glycol 3350 17 GM PACKET PO SCH (01:00)
[2023-08-22 01:17] LABS: Urine Appearance Clear; Urine Bilirubin Negative (Negative); Urine Blood Negative (Negative); Urine Color Colorless; Urine Glucose Negative (Negative); Urine Ketones Negative (Negative); Urine Nitrite Negative (Negative); Urine Protein Negative (Negative); Urine Specific Gravity 1.015 (1.002-1.030); Urine Urobilinogen Negative (Negative); Urine pH 7.5 (5.0-8.0)
[2023-08-22] MEDS: ZOSYN 3.375 GM Q8H per EXTENDED INFUSION IV SCH ×2 (01:33→17:48)
[2023-08-22] MEDS: Lactated Ringers 1000 ml BAG 1,000 ML IV ONE (01:33)
[2023-08-22 05:50] LABS: ABS Lymphocytes 0.5 10^3/uL (1.0-4.8); ABS Monocytes 0.6 10^3/uL (0.0-1.1); ABS Neutrophils 7.4 10^3/uL (1.5-7.6); Eosinophil % 0.5 %; Hematocrit 29.4 % (38-53); Hemoglobin 10.1 g/dL (13.2-16.3); Mean Corpuscular Hemoglobin 30.9 pg (27-33); Mean Corpuscular Hgb Conc 34.5 g/dL (31-36); Mean Corpuscular Volume 89.6 fL (80-97); Mean Platelet Volume 8.2 fL (7.5-11.2); Platelet Count 244 10^3/uL (150-450); Red Blood Count 3.28 10^6/uL (4.06-5.63); Red Cell Distribution Width 15.4 % (12-17); White Blood Count 8.6 10^3/uL (3.6-10.2)
[2023-08-22 06:35] LABS: Calcium 8.5 mg/dL (8.6-10.3); Creatinine, Serum 1.12 mg/dL (0.67-1.17); Globulin 3.1 g/dL (2-4); Potassium 4.3 mmol/L (3.5-5.0); Total Bilirubin 1.5 mg/dL (0.2-1.0); Total Protein 6.1 g/dL (6.4-8.9); eGFR CKD-EPI 66.4 (>60)
[2023-08-22] MEDS: Multivitamins/Minerals TAB PO SCH (09:02)
[2023-08-22] MEDS: Psyllium PAK PO SCH (09:16)
[2023-08-22] MEDS: NF:Multivitamins/Minera Areds(NF) CAP PO SCH (09:17)
[2023-08-22] MEDS: Cholecalciferol (VIT D3) 1,000 unit TAB PO SCH (12:50)
[2023-08-22] MEDS: Polyethylene Glycol 3350 17 GM PACKET PO SCH (22:22)
[2023-08-23 06:12] VITALS: BP 129/72
[2023-08-23 06:45] LABS: ABS Eosinophils 0.1 10^3/uL (0.0-0.5); ABS Lymphocytes 0.6 10^3/uL (1.0-4.8); ABS Monocytes 0.5 10^3/uL (0.0-1.1); ABS Neutrophils 5.8 10^3/uL (1.5-7.6); ABS Nucleated RBC 0.01 10^3/ul; Eosinophil % 1.8 %; Hematocrit 28.7 % (38-53); Hemoglobin 9.8 g/dL (13.2-16.3); Lymphocyte % 8.7 %; Mean Corpuscular Hgb Conc 34.3 g/dL (31-36); Mean Corpuscular Volume 90.4 fL (80-97); Mean Platelet Volume 8.4 fL (7.5-11.2); Nucleated Red Blood Cells % 0.2 %/100WBC (0.0-0.8); Platelet Count 243 10^3/uL (150-450); Red Blood Count 3.17 10^6/uL (4.06-5.63); Red Cell Distribution Width 15.1 % (12-17); White Blood Count 7.1 10^3/uL (3.6-10.2)
[2023-08-23 07:09] LABS: Calcium 8.3 mg/dL (8.6-10.3); Creatinine, Serum 1.13 mg/dL (0.67-1.17); Potassium 4.2 mmol/L (3.5-5.0); eGFR CKD-EPI 65.7 (>60)
[2023-08-23] MEDS: Iohexol 350 (CONTRAST) 500 ML MDV IV ONE (09:40)
[2023-08-23] MEDS: Amoxicillin/Clavul 875/125 TAB (Augmentin 875 tab) PO ONE (10:23)
[2023-08-24] MEDS ORDERED: Psyllium PAK PO SCH (21:00)
== END 2023-08-23 11:00 | disposition home or self-care (01) ==
LOC: ED 17:26 → EDHOLD 17:26 → SUATTDRO 23:50 → MED 08-22 14:31
PROVIDERS: ADMIT Internal Medicine; ATTEND Hospitalist

== ENCOUNTER 2023-09-04 17:52 | Inpatient (IN) ==
[2023-09-04] MEDS: Piperacillin/Tazobac 3.375 BAG 3.375 GM/100 ML BAG IV ONE (18:20)
[2023-09-04 18:24] LABS: ABS Lymphocytes 0.4 10^3/uL (1.0-4.8); ABS Monocytes 0.2 10^3/uL (0.0-1.1); ABS Neutrophils 8.2 10^3/uL (1.5-7.6); ABS Nucleated RBC 0.01 10^3/ul; Eosinophil % 0.2 %; Hematocrit 35.3 % (38-53); Hemoglobin 11.5 g/dL (13.2-16.3); Lymphocyte % 4.5 %; Mean Corpuscular Hemoglobin 29.5 pg (27-33); Mean Corpuscular Hgb Conc 32.7 g/dL (31-36); Mean Corpuscular Volume 90.3 fL (80-97); Mean Platelet Volume 8.2 fL (7.5-11.2); Nucleated Red Blood Cells % 0.1 %/100WBC (0.0-0.8); Platelet Count 373 10^3/uL (150-450); Red Blood Count 3.91 10^6/uL (4.06-5.63); Red Cell Distribution Width 15.9 % (12-17); White Blood Count 8.9 10^3/uL (3.6-10.2)
[2023-09-04 18:37] LABS: Activated Partial Thrombo Time 35.5 seconds (26.0-38.0); INR 1.54 (0.83-1.13)
[2023-09-04 18:55] LABS: Albumin 3.9 g/dL (3.2-5.2); Albumin/Globulin Ratio 1.1 (1-3); C Reactive Protein 19.28 mg/L (<8.01); Calcium 9.2 mg/dL (8.6-10.3); Creatinine, Serum 1.2 mg/dL (0.67-1.17); Globulin 3.7 g/dL (2-4); Magnesium 1.7 mg/dL (1.9-2.7); Potassium 4.5 mmol/L (3.5-5.0); Total Protein 7.6 g/dL (6.4-8.9); eGFR CKD-EPI 61.1 (>60)
[2023-09-04 19:58] LABS: High Sensitivity Troponin 1 Hr 13 pg/mL (<20)
[2023-09-04] MEDS ORDERED: Senna TAB 8.6 mg TAB PO PRN (20:55)
[2023-09-04] MEDS ORDERED: Ondansetron 4 mg VIAL 2 MG/ML 2 ml VIAL IV PRN (20:55)
[2023-09-04] MEDS: Vancomycin 1,000 MG in NS 0.9% 250 ml 250 ML IVPB ONE (21:01)
[2023-09-04] MEDS ORDERED: Vancomycin per Pharmacy 1 EA NOTE FOLLOW UP SCH (22:00)
[2023-09-04] MEDS ORDERED: Zosyn per Pharmacy NOTE FOLLOW UP SCH (22:00)
[2023-09-04] MEDS: NS 0.9% 1000 ml BAG 400 ML IV ONE (23:47)
[2023-09-04] MEDS: Magnesium Sulfate 2 gm BAG 2 GM/50 ML BAG IVPB ONE (23:48)
[2023-09-05] MEDS: ZOSYN 3.375 GM Q8H per EXTENDED INFUSION IV SCH ×2 (01:12→09:41)
[2023-09-05] MEDS: Vancomycin 750 MG in NS 0.9% 250 ML IVPB SCH (07:43)
[2023-09-05 07:49] LABS: ABS Lymphocytes 0.6 10^3/uL (1.0-4.8); ABS Monocytes 0.6 10^3/uL (0.0-1.1); Eosinophil % 0.2 %; Hemoglobin 9.9 g/dL (13.2-16.3); Lymphocyte % 5.5 %; Mean Corpuscular Hemoglobin 30.7 pg (27-33); Mean Corpuscular Hgb Conc 34.1 g/dL (31-36); Mean Corpuscular Volume 89.9 fL (80-97); Platelet Count 301 10^3/uL (150-450); Red Blood Count 3.23 10^6/uL (4.06-5.63); Red Cell Distribution Width 15.8 % (12-17); White Blood Count 10.3 10^3/uL (3.6-10.2)
[2023-09-05 08:26] LABS: Albumin 3.1 g/dL (3.2-5.2); Calcium 8.4 mg/dL (8.6-10.3); Creatinine, Serum 1.08 mg/dL (0.67-1.17); Globulin 3.2 g/dL (2-4); Potassium 4.5 mmol/L (3.5-5.0); Total Bilirubin 1.7 mg/dL (0.2-1.0); Total Protein 6.3 g/dL (6.4-8.9); eGFR CKD-EPI 69.4 (>60)
[2023-09-05] MEDS: Vitamin THERAPEUTIC TAB PO SCH (09:41)
[2023-09-05] MEDS: NF: Multivitamins/Minera Areds(NF) CAP PO SCH (09:41)
[2023-09-05] MEDS: Cholecalciferol (VIT D3) 1,000 unit TAB PO SCH (09:41)
[2023-09-05 11:00] LABS: Magnesium 2.3 mg/dL (1.9-2.7)
[2023-09-05 12:44] LABS: Urine Appearance Clear; Urine Bilirubin Negative (Negative); Urine Blood Negative (Negative); Urine Color Light-Yellow; Urine Glucose Negative (Negative); Urine Ketones Negative (Negative); Urine Nitrite Negative (Negative); Urine Protein Negative (Negative); Urine Specific Gravity 1.014 (1.002-1.030); Urine Urobilinogen Negative (Negative)
[2023-09-06 06:32] LABS: ABS Basophils 0.1 10^3/uL (0.0-0.1); ABS Eosinophils 0.1 10^3/uL (0.0-0.5); ABS Lymphocytes 0.6 10^3/uL (1.0-4.8); ABS Monocytes 0.5 10^3/uL (0.0-1.1); Eosinophil % 1.2 %; Hematocrit 27.8 % (38-53); Hemoglobin 9.4 g/dL (13.2-16.3); Lymphocyte % 8.7 %; Mean Corpuscular Hemoglobin 30.2 pg (27-33); Mean Corpuscular Hgb Conc 33.8 g/dL (31-36); Mean Corpuscular Volume 89.4 fL (80-97); Mean Platelet Volume 8.3 fL (7.5-11.2); Platelet Count 267 10^3/uL (150-450); Red Cell Distribution Width 15.8 % (12-17); White Blood Count 7.3 10^3/uL (3.6-10.2)
[2023-09-06 07:34] LABS: Albumin 2.9 g/dL (3.2-5.2); Calcium 8.2 mg/dL (8.6-10.3); Creatinine, Serum 0.92 mg/dL (0.67-1.17); Potassium 4.2 mmol/L (3.5-5.0); Total Bilirubin 1.2 mg/dL (0.2-1.0); Total Protein 5.9 g/dL (6.4-8.9); Vancomycin Trough 11.1 mcg/mL; eGFR CKD-EPI 84.1 (>60)
[2023-09-06] MEDS: Vancomycin Trough Check NOTE FOLLOW UP ONE (07:43)
[2023-09-07] MEDS: MINERA AREDS PO SCH (00:50)
[2023-09-07] MEDS: MULTIVITAMINS PO SCH (00:50)
[2023-09-08 05:40] LABS: ABS Eosinophils 0.1 10^3/uL (0.0-0.5); ABS Lymphocytes 0.5 10^3/uL (1.0-4.8); ABS Monocytes 0.5 10^3/uL (0.0-1.1); ABS Neutrophils 7.4 10^3/uL (1.5-7.6); Eosinophil % 0.7 %; Hemoglobin 9.2 g/dL (13.2-16.3); Lymphocyte % 5.6 %; Mean Corpuscular Hemoglobin 30.6 pg (27-33); Mean Corpuscular Volume 89.9 fL (80-97); Mean Platelet Volume 8.4 fL (7.5-11.2); Platelet Count 276 10^3/uL (150-450); Red Cell Distribution Width 15.9 % (12-17); White Blood Count 8.5 10^3/uL (3.6-10.2)
[2023-09-08 06:00] LABS: Calcium 8.2 mg/dL (8.6-10.3); Creatinine, Serum 0.91 mg/dL (0.67-1.17); Potassium 4.2 mmol/L (3.5-5.0); eGFR CKD-EPI 85.2 (>60)
[2023-09-08 21:25] LABS: Body Fluid Appearance Cloudy; Body Fluid Color Amber; Body Fluid Source Pleural Fluid; Body Fluid Total Nucleated 2312 /mcL
[2023-09-09 05:52] LABS: ABS Eosinophils 0.1 10^3/uL (0.0-0.5); ABS Lymphocytes 0.7 10^3/uL (1.0-4.8); ABS Monocytes 0.7 10^3/uL (0.0-1.1); ABS Neutrophils 5.6 10^3/uL (1.5-7.6); Eosinophil % 0.9 %; Hematocrit 24.6 % (38-53); Hemoglobin 8.4 g/dL (13.2-16.3); Lymphocyte % 9.4 %; Mean Corpuscular Hemoglobin 30.6 pg (27-33); Mean Corpuscular Hgb Conc 34.3 g/dL (31-36); Mean Corpuscular Volume 89.1 fL (80-97); Mean Platelet Volume 8.5 fL (7.5-11.2); Platelet Count 273 10^3/uL (150-450); Red Blood Count 2.76 10^6/uL (4.06-5.63); Red Cell Distribution Width 15.8 % (12-17); White Blood Count 7.1 10^3/uL (3.6-10.2)
[2023-09-09 06:08] LABS: Calcium 8.1 mg/dL (8.6-10.3); Creatinine, Serum 0.87 mg/dL (0.67-1.17); Magnesium 1.7 mg/dL (1.9-2.7); Potassium 3.9 mmol/L (3.5-5.0); Vancomycin Trough 14.5 mcg/mL; eGFR CKD-EPI 87.2 (>60)
[2023-09-09] MEDS: Vancomycin Trough Check NOTE FOLLOW UP ONE (07:40)
[2023-09-09] MEDS: Magnesium Sulfate 2 gm BAG 2 GM/50 ML BAG IVPB ONE (10:04)
[2023-09-09] MEDS: Acetaminophen IV 1 GM/100ML 1,000 MG/100 ML BAG IV PRN (18:15)
[2023-09-10] MEDS ORDERED: Enalaprilat IV 1.25 mg/ml 1 ml VIAL (1.25 MG) IV SCH (06:00)
[2023-09-10] MEDS: Enalaprilat IV 1.25 mg/ml 2 ml VIAL (2.5 MG) IV SCH (06:32)
[2023-09-10] MEDS: Levothyroxine 100 MCG/5 ML VIAL IV SCH (06:36)
[2023-09-10] MEDS: Metoprolol Tartrate 5 mg VIAL 5 ml VIAL (1 mg/ml) IV SCH (06:41)
[2023-09-10 07:10] LABS: C Reactive Protein 183.17 mg/L (<8.01); Calcium 8.3 mg/dL (8.6-10.3); Creatinine, Serum 0.99 mg/dL (0.67-1.17); Potassium 4.2 mmol/L (3.5-5.0)
[2023-09-10 07:23] LABS: ABS Lymphocytes 0.3 10^3/uL (1.0-4.8); ABS Monocytes 0.6 10^3/uL (0.0-1.1); ABS Neutrophils 7.6 10^3/uL (1.5-7.6); Eosinophil % 0.4 %; Hemoglobin 10.7 g/dL (13.2-16.3); Mean Corpuscular Hemoglobin 30.1 pg (27-33); Mean Corpuscular Hgb Conc 32.5 g/dL (31-36); Mean Corpuscular Volume 92.6 fL (80-97); Mean Platelet Volume 8.2 fL (7.5-11.2); Platelet Count 290 10^3/uL (150-450); Red Blood Count 3.56 10^6/uL (4.06-5.63); Red Cell Distribution Width 16.3 % (12-17); White Blood Count 8.5 10^3/uL (3.6-10.2)
[2023-09-10] MEDS: Pantoprazole VIAL 40 MG VIAL IV SCH (08:58)
[2023-09-10] MEDS: Metoprolol Tartrate 5 mg VIAL 5 ml VIAL (1 mg/ml) IV ONE (08:58)
[2023-09-10] MEDS: Enoxaparin 80 MG/0.8 ML SYR SUBCUT SCH (08:58)
[2023-09-10] MEDS: Albuterol/Ipratropium NEB.SOL (2.5/0.5 MG) 3 ML NEB.SOLN INH SCH (12:10)
[2023-09-10 12:11] LABS: Fluid Type, Protein, Total PLEURAL FLUID; Glucose, BF 29 mg/dL; Total Protein, BF 3.3 g/dL
[2023-09-10] MEDS ORDERED: Albuterol/Ipratropium NEB.SOL (2.5/0.5 MG) 3 ML NEB.SOLN INH PRN (12:14)
[2023-09-10 13:14] LABS: Lactate Dehydrogenase, BF 5200 U/L
[2023-09-10 15:40] LABS: Albumin, BF 1.6 g/dL; Fluid Type, Albumin PLEURAL FLUID
[2023-09-11 05:18] LABS: ABS Lymphocytes 0.4 10^3/uL (1.0-4.8); ABS Monocytes 0.7 10^3/uL (0.0-1.1); ABS Neutrophils 5.9 10^3/uL (1.5-7.6); Eosinophil % 0.5 %; Hematocrit 26.4 % (38-53); Hemoglobin 8.9 g/dL (13.2-16.3); Lymphocyte % 5.9 %; Mean Corpuscular Hemoglobin 30.3 pg (27-33); Mean Corpuscular Hgb Conc 33.9 g/dL (31-36); Mean Corpuscular Volume 89.5 fL (80-97); Mean Platelet Volume 8.2 fL (7.5-11.2); Platelet Count 317 10^3/uL (150-450); Red Blood Count 2.95 10^6/uL (4.06-5.63)
[2023-09-11 05:47] LABS: Calcium 8.4 mg/dL (8.6-10.3); Creatinine, Serum 0.84 mg/dL (0.67-1.17); Potassium 3.9 mmol/L (3.5-5.0); eGFR CKD-EPI 88.2 (>60)
[2023-09-11] MEDS ORDERED: Naloxone 0.4 mg VIAL 0.4 mg/ml 1 ml VIAL IV PRN (15:39)
[2023-09-11] MEDS ORDERED: Propofol 10 MG/ML 20 ML BTL ONE (15:50)
[2023-09-11] MEDS ORDERED: Atropine 1 MG/ML INJ 1 ML VIAL ONE (15:53)
[2023-09-11] MEDS ORDERED: Phenylephrine 40 mcg/mL 10mL (400mcg) SYRINGE ONE (15:54)
[2023-09-11] MEDS ORDERED: Succinylcholine 200 mg VIAL 20 mg/ml 10 ml VIAL (200 mg) ONE (15:54)
[2023-09-11] MEDS ORDERED: Rocuronium 50 mg VIAL 10 mg/ml 5 ml VIAL (50 mg) ONE (15:55)
[2023-09-11] MEDS ORDERED: NS 0.9% w/ 40 Meq KCL 1000 ML 1,000 ML IV SCH (18:00)
[2023-09-11] MEDS: NS 0.9% w/ 20 Meq KCL 1000 ml 1,000 ML IV SCH (18:04)
[2023-09-11] MEDS: D5W 1/2 NS KCl 20 meq 1000 ml 1,000 ML IV SCH (18:13)
[2023-09-11] MEDS: KCL 20 MEQ/100 ML IVPREMIX 20 MEQ/100 ML BAG IV ONE (18:13)
[2023-09-11] MEDS: Lactated Ringers 1000 ml BAG 1,000 ML IV SCH (19:41)
[2023-09-12] MEDS: ZOSYN 3.375 GM Q8H per EXTENDED INFUSION IV SCH (04:29)
[2023-09-12 05:44] LABS: ABS Basophils 0.1 10^3/uL (0.0-0.1); ABS Eosinophils 0.1 10^3/uL (0.0-0.5); ABS Lymphocytes 0.3 10^3/uL (1.0-4.8); ABS Monocytes 0.6 10^3/uL (0.0-1.1); ABS Neutrophils 6.4 10^3/uL (1.5-7.6); Eosinophil % 0.7 %; Hematocrit 28.6 % (38-53); Hemoglobin 9.5 g/dL (13.2-16.3); Lymphocyte % 4.2 %; Mean Corpuscular Hemoglobin 29.4 pg (27-33); Mean Corpuscular Volume 89.1 fL (80-97); Mean Platelet Volume 8.2 fL (7.5-11.2); Platelet Count 364 10^3/uL (150-450); Red Blood Count 3.21 10^6/uL (4.06-5.63); White Blood Count 7.5 10^3/uL (3.6-10.2)
[2023-09-12 06:00] LABS: Calcium 8.1 mg/dL (8.6-10.3); Creatinine, Serum 0.82 mg/dL (0.67-1.17); Magnesium 1.9 mg/dL (1.9-2.7); Potassium 4.5 mmol/L (3.5-5.0); eGFR CKD-EPI 88.8 (>60)
[2023-09-12] MEDS ORDERED: Vancomycin Trough Check NOTE FOLLOW UP ONE (06:00)
[2023-09-12] MEDS: Metoprolol Tartrate 5 mg VIAL 5 ml VIAL (1 mg/ml) IV SCH (10:47)
[2023-09-12] MEDS: Metoprolol Tartrate 5 mg VIAL 5 ml VIAL (1 mg/ml) ONE (10:47)
[2023-09-12] MEDS: Enoxaparin 80 MG/0.8 ML SYR SUBCUT SCH (22:29)
[2023-09-13] MEDS: Metoprolol Tartrate 5 mg VIAL 5 ml VIAL (1 mg/ml) IV SCH (06:04)
[2023-09-13] MEDS: Levothyroxine 100 MCG/5 ML VIAL IV SCH (06:04)
[2023-09-13 06:06] LABS: Creatinine, Serum 0.76 mg/dL (0.67-1.17); eGFR CKD-EPI 90.9 (>60)
[2023-09-13] MEDS ORDERED: Enalaprilat IV 1.25 mg/ml 2 ml VIAL (2.5 MG) IV SCH (08:00)
[2023-09-13] MEDS: Enalaprilat IV 1.25 mg/ml 2 ml VIAL (2.5 MG) IV SCH (08:21)
[2023-09-13] MEDS: D5W 1/2 NS 1000 ml BAG 1,000 ML IV SCH (17:38)
[2023-09-13] MEDS: D5NS 0.9% 1000 ml BAG 1,000 ML IV SCH (17:39)
[2023-09-14 06:28] LABS: Creatinine, Serum 0.76 mg/dL (0.67-1.17); eGFR CKD-EPI 90.9 (>60)
[2023-09-14] MEDS ORDERED: Morphine ORAL CONCENTRATE 5 MG/0.25 ML ORAL.SYRIN SL PRN (12:26)
[2023-09-15 10:00] VITALS: BP 169/90
== END 2023-09-15 13:04 | disposition hospice, home (50) | DRG 871 ==
LOC: EDHOLD 17:52 → ED 17:52 → OBSVTOIN 20:55 → SUATTDRO 21:00 → MEDTELE 09-05 02:26
PROVIDERS: ADMIT Hospitalist; ATTEND Internal Medicine
PROC: O.GIEGD (2023-09-11 14:05)